=== PATIENT | male | born 1945 | race Caucasian/White ===

== ENCOUNTER → 2016-04-11 | Day surgery (SDC) | payer OTHER ==
[~2016-04-11] MED LIST: ASPI81TA2 PO; BENZOCAINE ONE 20% MUCOSAL SPRAY.; CLOP75TA PO; DOXA4TAB3 PO; FURO20TA3 PO; GLIM2TAB2 PO; IV RINGERS,LACTATED 1000ML 1,000 ML IV SCH; LIDOCAINE 2% TOPICAL JELLY 30GM TUBE. TP ONE; LIDOCAINE 2% VISCOUS 15 ML SOLUTION. ONE; LOSA1TAB18 PO; LOVA20TA2 PO; POTA20TA4 PO; PROPOFOL 20 ML IV ONE; SOTA80TA PO
[2016-04-11 12:20] VITALS: BP 219/77
--- NOTE | 2016-04-11 19:05 | CARD ---
APPROVED REPORT EXAM: Transesophageal echocardiogram with color flow Doppler. INDICATION Aortic Valve Disease Cardiomyopathy Mitral Valve Disease Murmur Congestive Heart Failure PROCEDURE After obtaining informed consent, patient underwent transesophageal echo in the PACU. Sedation was provided by anesthesiologist, see EMR for medications administered. Transesophageal probe was inserted and advanced into esophagus by Eduardo Quinones MD. The FLACA was performed without complications. Throughout the procedure, the blood pressure, pulse oximetry, cardiac rhythm, and rate were monitored . The patient tolerated the procedure without adverse effects. Recovery from conscious sedation was une ventful and vital signs were stable. LEFT VENTRICLE The left ventricle is normal size. There is normal left ventricular wall thickness. Left ventricle sy stolic function is bellow normal. The Ejection Fraction is 40% RIGHT VENTRICLE The right ventricle is normal size. The right ventricular systolic function is normal. ATRIA The left atrium is mildly dilated. The right atrium size is normal. The interatrial septum is intact with no evidence for an atrial septal defect or patent foramen ovale as noted on 2-D or Doppler imagi ng. There is no thrombus noted in the left atrial appendage. AORTIC VALVE The aortic valve is moderately to severely calcified. The aortic valve is trileaflet. Doppler and Col or Flow revealed mild aortic regurgitation. There is moderate to severe valvular aortic stenosis. MITRAL VALVE The mitral valve is normal in structure. There is no mitral valve stenosis. Doppler and Color Flow re vealed moderate mitral regurgitation. TRICUSPID VALVE The tricuspid valve is normal in structure Doppler and Color Flow revealed mild tricuspid valve regur gitation noted. There is no tricuspid valve stenosis. PULMONIC VALVE The pulmonary valve is normal in structure and function. Doppler and Color Flow revealed no pulmonic valvular regurgitation. There is no pulmonic valvular stenosis. GREAT VESSELS The aortic root is normal in size. Normal pulmonary venous flow (Doppler). No significant flow revers al in the pulmonary veins The IVC was visualized and appears normal in size. The SVC was visualized a nd appears normal in size. Critical Notification Critical Value: No <Conclusion> Left ventricle systolic function is bellow normal. The Ejection Fraction is 40% The left atrium is mildly dilated. The right atrium size is normal. There is no thrombus noted in the left atrial appendage. There is moderate to severe valvular aortic stenosis. Doppler and Color Flow revealed mild aortic regurgitation. The aortic valve is moderately to severely calcified. The aortic valve is trileaflet. Doppler and Color Flow revealed moderate mitral regurgitation. Doppler and Color Flow revealed mild tricuspid valve regurgitation noted. The pulmonary valve is normal in structure and function. The aortic root is normal in size. Normal pulmonary venous flow (Doppler). No significant flow reversal in the pulmonary veins The findings in the aortic and mitral valves may be secondary to rheumatic heart disease
== END | disposition home or self-care (01) ==
LOC: SURG 09:25
PROVIDERS: ATTEND Internal Medicine Cardiovascular Disease
DX: I42.9 Cardiomyopathy, unspecified (principal); I50.9 Heart failure, unspecified; I05.9 Rheumatic mitral valve disease, unspecified; I25.10 Atherosclerotic heart disease of native coronary artery without angina pectoris; T82.897A Other specified complication of cardiac prosthetic devices, implants and grafts, initial encounter; E78.00 Pure hypercholesterolemia, unspecified; I10 Essential (primary) hypertension; M19.90 Unspecified osteoarthritis, unspecified site; F41.9 Anxiety disorder, unspecified; F10.99 Alcohol use, unspecified with unspecified alcohol-induced disorder; F17.200 Nicotine dependence, unspecified, uncomplicated; E11.9 Type 2 diabetes mellitus without complications; I73.9 Peripheral vascular disease, unspecified
CPT/HCPCS: 76376; 82947; 93312; 93325; J2704

== ENCOUNTER 2016-04-23 07:57 | Inpatient (IN) | payer OTHER ==
[~2016-04-23] VITALS: Ht 172.7 cm; Wt 83.5 kg
[~2016-04-23 07:57] MED LIST changes: -BENZOCAINE ONE 20% MUCOSAL SPRAY.; -IV RINGERS,LACTATED 1000ML 1,000 ML IV SCH; -LIDOCAINE 2% TOPICAL JELLY 30GM TUBE. TP ONE; -LIDOCAINE 2% VISCOUS 15 ML SOLUTION. ONE; -PROPOFOL 20 ML IV ONE
[2016-04-23 08:28] LABS: HEMOGLOBIN 13.2 g/dL (13.0-17.5); RED BLOOD COUNT 4.38 x10^6/uL (4.30-5.70); RED CELL DISTRIBUTION WIDTH 14.1 % (11.5-14.5); WHITE BLOOD COUNT 8.2 x10^3/uL (4.0-11.0)
[2016-04-23 08:29] VITALS: BP 147/72
[2016-04-23 08:37] LABS: INR 1.1 (0.8-1.1); PROTHROMBIN TIME PATIENT 13.4 SEC (11.7-14.0)
[2016-04-23 10:40] VITALS: BP 159/60
--- NOTE | 2016-04-23 13:26 | PDOC2 ---
DATE OF CONSULT Date of Consult 04/23/2016 REASON FOR CONSULT Reason for Consult JACOBO REFERRING PHYSICIAN Referring Provider Dr Quinones CHIEF COMPLAINT Chief Complaint CAD Jamila sevilla SOURCE Source pt, and daughter HPI HPI as dictated ALLERGIES Allergies: Coded Allergies: No Known Drug Allergies (Unverified , 04/10/16) ROS ROS GEN: no Fevers no Chills EYES: no new Visual Complaints ENT: no EN Drainage no Hearing deficiets CVS: no Orthopnea min CP RESP: occ SOB occ HARRELL GI: no Nausea no Vomiting : no Dysuria no Urgency HEME: no easy bruising no Palp Ly Nodes NEURO no Focal Weakness no Sz PSYCH: no Suicidal Ideation no Depression SKIN: no Rashes ENDO: no Polyuria or Polydipsia n Hot/Cold Intolerance MU SK: Ch Arthraigia no Myalgia VITAL SIGNS Vital Signs VS - Last 72 Hours, by Label Date Time Temp Pulse Resp B/P Pulse Ox O2 Delivery O2 Flow Rate FiO2 04/23/16 10:40 97.5 51 18 159/60 97 Room Air 97.5 04/23/16 08:29 98.0 51 16 147/72 96 Room Air 98.0 PHYSICAL EXAM Physical Exam General Appearance: Awake Alert Oriented x 3 In no Distress Eyes: VIsion Unchanged Conjunctiva Normal EN: No EN Drainage Mucous Memb. moist Neck: no JVD no JVP Supple no Thyromegaly CVS: S1 S2 + Murmur No Gallop No Rub no Edema Resp: no Rales no Rhonchi no Acc. Muscle use GI: BAS +ve NO Bruit Non Tender Non Distended : no CVA tenderness; no Suprapubic Tenderness SKIN: no Rashes Breast Exam deferred Mu.Sk: Adequate ROM no Muscle Atrophy Heme: Unable to palpate Obvious LAD no Splenomegaly NEURO: Good Strength and Tone Cranial Nerves II - XII grossly intact Psych: not Depressed no Active hallucination ASSESSMENT/PLAN Assessment/Plan ARF: unclear etio. Best explaination would be Vol Dpeltion from diuretic use. VHDz may be contributing. Current FLuid and E-lyte status does not necessitate emergent need for Dialysis. Will re-evaluate for Dialysis in am ? CKD underlying - pt and family are not aware of same - will get OP Labs from PCP office CAD/ JUANCARLOSz - for LHC - will start IVF and NAC for now. If Creat is at orclose to baseline - then LHC in am ; gentle IVF for now HTN: Current BP meds reviewed. See orders for changes. Discussed Plan of Care and prognosis etc. at length with family. IMAGES Images: Left ventricle systolic function is normal. The Ejection Fraction is 65%. There is borderline concentric left ventricular hypertrophy. The left atrium size is mildly dilated The right atrium size is normal. The aortic valve is moderately calcified. Doppler and Color Flow revealed moderate aortic regurgitation. Calculated aortic valve area is 0.75 cm2 with maximum pressure gradient of 64 mmHg and mean pressure gradient of 41 mmHg. Doppler and color-flow analysis revealed severe aortic stenosis. Doppler and Color Flow revealed moderate mitral regurgitation. Doppler and Color Flow revealed mild tricuspid regurgitation. There is mild-moderate pulmonary hypertension. The PA pressure was estimated at 40 mmHg. The pulmonic valve is not well visualized. There is no evidence of significant pericardial effusion. LABS Labs: Laboratory Tests Test 04/23/16 08:20 White Blood Count 8.2x10^3/uL (4.0-11.0) Red Blood Count 4.38x10^6/uL (4.30-5.70) Hemoglobin 13.2g/dL (13.0-17.5) Hematocrit 39.0% (39.0-53.0) Mean Corpuscular Volume 89fL (79-100) Mean Corpuscular Hemoglobin 30pg (25-35) Mean Corpuscular Hemoglobin Concent 34g/dL (31-37) Red Cell Distribution Width 14.1% (11.5-14.5) Platelet Count 155x10^3/uL (140-400) Prothrombin Time 13.4SEC (11.7-14.0) Prothromb Time International Ratio 1.1 (0.8-1.1) Activated Partial Thromboplast Time 29SEC (24-38) Sodium Level 144mmol/L (136-145) Chloride Level 104mmol/L (98-107) Carbon Dioxide Level 32mmol/L (21-32) Anion Gap 8 (6-14) Blood Urea Nitrogen 27mg/dL (8-26) Estimated GFR (Cockcroft-Gault) 31.3 Glucose Level 128mg/dL (70-99) Calcium Level 9.1mg/dL (8.5-10.1) ABDULAZIZ BARROSO MD Apr 23, 2016 13:26
[2016-04-23] MEDS ORDERED: MAGNESIUM SULFATE 2GM 50 ML IV PRN (13:30)
[2016-04-23] MEDS: IV NORMAL SALINE 1000ML BAG 1,000 ML IV SCH (13:46)
[2016-04-23 13:55] LABS: ALBUMIN 2.3 g/dL (3.4-5.0); ALBUMIN/GLOBULIN RATIO 0.5 (1.0-1.7); CREATININE 2.1 mg/dL (0.7-1.3); GFR 31.3; TOTAL BILIRUBIN 0.5 mg/dL (0.2-1.0); TOTAL PROTEIN 7.1 g/dL (6.4-8.2)
[2016-04-23 15:05] VITALS: BP 158/83
--- NOTE | 2016-04-23 16:25 | RAD ---
Renal ultrasound, 04/23/2016: History: Acute renal insufficiency The right kidney measures 11.4 cm in length while the left kidney measures 11.1 cm. There is no evidence of hydronephrosis. The renal parenchymal echogenicity is within normal limits. There is mild bilateral renal cortical scarring. Prevoiding limited views of the urinary bladder show no abnormality. Post voiding views demonstrated approximately 36 cc of residual urine in the bladder. IMPRESSION: 1. Mild bilateral renal cortical scarring. 2. No evidence of renal obstruction. 3. Small volume of post voiding residual urine in the bladder.
--- NOTE | 2016-04-23 18:49 | PDOC1 ---
History and Physical Date of Admission Date of Admission DATE: 04/23/16 TIME: 18:42 Identification/Chief Complaint Chief Complaint Dyspnea and near syncope History of Present Illness History of Present Illness This patient is a 70-year-old gentleman that has a known history of valvular heart disease with aortic stenosis that has been followed for some time. The patient started developing some episodes of lightheadedness and feeling faint and this has also been since he started developing shortness of breath with exertion. Now he cannot walk 100 feet without getting short of breath. He was seen and evaluated as an outpatient and a FLACA was done that showed aortic stenosis with mitral insufficiency. The patient was coming in for a right and left heart catheterization to further evaluate his valvular condition but on arrival we found that he had a BUNs of 31 and a creatinine of 2.1. At this time the patient is not having any chest pains and is not having any dyspnea at rest. Past Medical History Cardiovascular: HTN, Aortic stenosis, Valve insufficiency, Pulmonary hypertension Current Medications Current Medications Current Medications Sodium Chloride 1,000 ml @ 75 mls/hr [id number] IV Last administered on t 13:46; Start 04/23/16 at 13:30 Magnesium Sulfate/ Dextrose (Magnesium Sulfate PREMIX 2GM) 50 ml @ 25 mls/hr PRN DAILY PRN IV for Mag < 1.7 on am labs; Start 04/23/16 at 13:30 Aspirin (Children'S Aspirin) 81 mg DAILYWBKFT PO ; Start 04/24/16 at 08:00 Potassium Chloride (Klor-Con) 20 meq DAILYWBKFT PO ; Start 04/24/16 at 08:00 Clopidogrel Bisulfate (Plavix) 75 mg DAILYWBKFT PO ; Start 04/24/16 at 08:00 Doxazosin Mesylate (Cardura) 4 mg DAILY PO ; Start 04/24/16 at 09:00 Glimepiride (Amaryl) 2 mg BIDWMEALS PO ; Start 04/24/16 at 08:00 Sotalol HCl (Betapace) 80 mg BID PO ; Start 04/23/16 at 21:00 Active Scripts Active Reported Lovastatin 20 Mg Tablet 1 Tab PO DAILY Doxazosin Mesylate 4 Mg Tablet 1 Tab PO DAILY Glimepiride 2 Mg Tablet 1 Tab PO BID Klor-Con M20 (Potassium Chloride) 20 Meq Tab.er.prt 20 Meq PO DAILY Aspirin 81 Mg Tab.chew 1 Tab PO DAILY Clopidogrel (Clopidogrel Bisulfate) 75 Mg Tablet 1 Tab PO DAILY Sotalol (Sotalol Hcl) 80 Mg Tablet 1 Tab PO BID Losartan-Hctz 100-12.5 Mg Tab (Losartan/Hydrochlorothiazide) 1 Each Tablet 1 Tab PO DAILY Furosemide 20 Mg Tablet 1 Tab PO DAILY Allergies Allergies: Coded Allergies: No Known Drug Allergies (Unverified , 04/10/16) Physical Exam Physical Exam The patient was resting comfortably and denies having any rest chest pain or dyspnea. H EENT pupils are reactive, there is surgical scars over the nose and there is an excoriation on the right side of the nose. Oral mucosa dry. Neck is supple no JVD. Lungs are clear. Heart regular rate and rhythm there is a 3/6 systolic murmur best heard over the second intercostal space right sternal border and a 2/6 systolic murmur with a slightly different pitch at the apex. Abdomen is soft bowel sounds are present. Extremities no edema. Neurologic Exam was grossly intact. Vitals Vitals Vital Signs Date Time Temp Pulse Resp B/P Pulse Ox O2 Delivery O2 Flow Rate FiO2 04/23/16 15:05 97.5 55 18 158/83 97 Room Air 97.5 Labs Labs Laboratory Tests Test 04/23/16 08:20 White Blood Count 8.2x10^3/uL (4.0-11.0) Red Blood Count 4.38x10^6/uL (4.30-5.70) Hemoglobin 13.2g/dL (13.0-17.5) Hematocrit 39.0% (39.0-53.0) Mean Corpuscular Volume 89fL (79-100) Mean Corpuscular Hemoglobin 30pg (25-35) Mean Corpuscular Hemoglobin Concent 34g/dL (31-37) Red Cell Distribution Width 14.1% (11.5-14.5) Platelet Count 155x10^3/uL (140-400) Prothrombin Time 13.4SEC (11.7-14.0) Prothromb Time International Ratio 1.1 (0.8-1.1) Activated Partial Thromboplast Time 29SEC (24-38) Sodium Level 144mmol/L (136-145) Potassium Level 4.0mmol/L (3.5-5.1) Chloride Level 105mmol/L (98-107) Carbon Dioxide Level 31mmol/L (21-32) Anion Gap 8 (6-14) Blood Urea Nitrogen 27mg/dL (8-26) Creatinine 2.1mg/dL (0.7-1.3) Estimated GFR (Cockcroft-Gault) 31.3 BUN/Creatinine Ratio 13 (6-20) Glucose Level 128mg/dL (70-99) Calcium Level 9.0mg/dL (8.5-10.1) Total Bilirubin 0.5mg/dL (0.2-1.0) Aspartate Amino Transf (AST/SGOT) 28U/L (15-37) Alanine Aminotransferase (ALT/SGPT) 25U/L (16-63) Alkaline Phosphatase 88U/L (46-116) Total Protein 7.1g/dL (6.4-8.2) Albumin 2.3g/dL (3.4-5.0) Albumin/Globulin Ratio 0.5 (1.0-1.7) Laboratory Tests Test 04/23/16 08:20 White Blood Count 8.2x10^3/uL (4.0-11.0) Red Blood Count 4.38x10^6/uL (4.30-5.70) Hemoglobin 13.2g/dL (13.0-17.5) Hematocrit 39.0% (39.0-53.0) Mean Corpuscular Volume 89fL (79-100) Mean Corpuscular Hemoglobin 30pg (25-35) Mean Corpuscular Hemoglobin Concent 34g/dL (31-37) Red Cell Distribution Width 14.1% (11.5-14.5) Platelet Count 155x10^3/uL (140-400) Prothrombin Time 13.4SEC (11.7-14.0) Prothromb Time International Ratio 1.1 (0.8-1.1) Activated Partial Thromboplast Time 29SEC (24-38) Sodium Level 144mmol/L (136-145) Potassium Level 4.0mmol/L (3.5-5.1) Chloride Level 105mmol/L (98-107) Carbon Dioxide Level 31mmol/L (21-32) Anion Gap 8 (6-14) Blood Urea Nitrogen 27mg/dL (8-26) Creatinine 2.1mg/dL (0.7-1.3) Estimated GFR (Cockcroft-Gault) 31.3 BUN/Creatinine Ratio 13 (6-20) Glucose Level 128mg/dL (70-99) Calcium Level 9.0mg/dL (8.5-10.1) Total Bilirubin 0.5mg/dL (0.2-1.0) Aspartate Amino Transf (AST/SGOT) 28U/L (15-37) Alanine Aminotransferase (ALT/SGPT) 25U/L (16-63) Alkaline Phosphatase 88U/L (46-116) Total Protein 7.1g/dL (6.4-8.2) Albumin 2.3g/dL (3.4-5.0) Albumin/Globulin Ratio 0.5 (1.0-1.7) VTE Prophylaxis Ordered VTE Prophylaxis Devices: No VTE Pharmacological Prophylaxi: Yes Assessment/Plan Assessment/Plan This patient with valvular heart disease with aortic stenosis and mitral insufficiency needs to have a right and left heart catheterization to further evaluate his condition before he undergoes surgery. He comes in and appears to have acute renal failure therefore I would like to start him on IV fluids and consult the producer director. When the producer director clears him for the heart catheterization will then proceed with that. BANDAR HUFFMAN MD Apr 23, 2016 18:49
[2016-04-23 19:00] VITALS: BP 146/49
[2016-04-23] MEDS: SOTALOL 80 MG TABLET. PO SCH (19:56)
[2016-04-23 23:00] VITALS: BP 130/52
--- NOTE | 2016-04-23 23:41 | CONS ---
DATE OF CONSULTATION: PRIMARY PHYSICIAN: Dr. Quinones. REASON FOR CONSULTATION: Acute renal failure. HISTORY OF PRESENT ILLNESS: The patient is a 70-year-old gentleman with past medical history as outlined below. He was noted to have aortic sclerosis/stenosis with aortic valve area of 0.75 cm on most recent echocardiogram with a peak gradient of 64 and a mean pressure gradient of 41. This is consistent with severe aortic stenosis and moderate mitral regurgitation. He was admitted to this facility to assess for left heart cath prior to valvular intervention. He was noted to have a creatinine of 2.1 this morning precath and we were asked to see him to assess his precath risk associated with contrast nephropathy. The patient is not aware of known underlying renal insufficiency per se. He is on diuretics. Denies orthostasis, occasional shortness of breath. He thinks his urine color has been relatively normal. He denies NSAID use in the recent past. No baseline creatinines available at this time. PAST MEDICAL HISTORY: Significant for coronary artery disease, status post stents, peripheral vascular disease, ____ intervention not known, hyperlipidemia, hypertension, questionable BPH, chronic arthritis, type 2 diabetes, anxiety disorder, previous smoking, skin cancers in the past. FAMILY HISTORY: Positive for lymphoma in the mom, emphysema in the dad. SOCIAL HISTORY: , previous smoker, minimal alcohol use. For rest of details, see electronic records. ABDULAZIZ BARROSO MD DR: NICKY/mattie JOB#: [id number] / [id number]
[2016-04-24 00:05] LABS: BILIRUBIN,URINE NEGATIVE (NEG); GLUCOSE,URINE 100 mg/dL (NEG); NITRITE,URINE NEGATIVE (NEG); UROBILINOGEN,URINE 0.2 mg/dL (0.2 mg/dL)
[2016-04-24 00:14] LABS: BACTERIA,URINE FEW /HPF (0-FEW); PROTEIN,URINE TRACE mg/dL (NEG-TRACE); RBC,URINE 0 /HPF (0-2); SQUAMOUS EPITHELIAL CELL,UR OCC /LPF; WBC,URINE OCC /HPF (0-4)
[2016-04-24] MEDS: IV NORMAL SALINE 1000ML BAG 1,000 ML IV SCH ×2 (02:15→16:10)
[2016-04-24 03:00] VITALS: BP 152/41
[2016-04-24 07:25] VITALS: BP 176/56
[2016-04-24] MEDS ORDERED: MAGNESIUM SULFATE 2GM 50 ML IV ONE (07:30)
[2016-04-24] MEDS: ASPIRIN 81 MG TAB.CHEW PO SCH (08:10)
[2016-04-24] MEDS: POTASSIUM CHLORIDE 20 MEQ TABLET.ER. PO SCH (08:10)
[2016-04-24] MEDS: CLOPIDOGREL BISULFATE 75 MG TABLET PO SCH (08:10)
[2016-04-24] MEDS: GLIMEPIRIDE 2 MG TABLET PO SCH ×2 (08:11→17:49)
[2016-04-24] MEDS: SOTALOL 80 MG TABLET. PO SCH ×2 (08:11→20:44)
[2016-04-24] MEDS: DOXAZOSIN MESYLATE 4 MG TABLET PO SCH (08:11)
[2016-04-24 08:38] LABS: ALBUMIN 2.9 g/dL (3.4-5.0); CALCIUM 7.8 mg/dL (8.5-10.1); CREATININE 2.1 mg/dL (0.7-1.3); GFR 31.3; PHOSPHORUS 3.7 mg/dL (2.6-4.7); POTASSIUM 3.6 mmol/L (3.5-5.1)
--- NOTE | 2016-04-24 10:11 | PDOC ---
SUBJECTIVE ROS JACOBO/ CKD III Doigna nd feeling OK Overall CVS: no Orthopnea, no CP RESP: no SOB, no HARRELL GI: no Nausea, no Vomiting : no Dysuria, no Urgency OBJECTIVE Vital Signs Vital Signs Date Time Temp Pulse Resp B/P Pulse Ox O2 Delivery O2 Flow Rate FiO2 04/24/16 08:11 64 176/56 04/24/16 07:25 97.9 18 96 Room Air 97.9 I & 0 Intake and Output 04/24/16 07:00 Intake Total 3750 ml Output Total 1450 ml Balance 2300 ml Intake Oral 2750 ml IV Total 1000 ml Output Urine Total 1450 ml # Voids 2 PHYSICAL EXAM Physical Exam General Appearance: Awake Alert Oriented x 3 In no Distress Eyes: VIsion Unchanged Conjunctiva Normal EN: No EN Drainage Mucous Memb. moist Neck: no JVD no JVP Supple no Thyromegaly CVS: S1 S2 + Murmur No Gallop No Rub no Edema Resp: no Rales no Rhonchi no Acc. Muscle use GI: BS +ve NO Bruit Non Tender Non Distended : no CVA tenderness; no Suprapubic Tenderness SKIN: no Rashes Breast Exam deferred Mu.Sk: Adequate ROM no Muscle Atrophy Heme: Unable to palpate Obvious LAD no Splenomegaly NEURO: Good Strength and Tone Cranial Nerves II - XII grossly intact Psych: not Depressed no Active hallucination ASSESSMENT/PLAN Assessment/Plan CKD III/ IV - Extensive time spent getting and reviewing Med records from PCP. Current FLuid and E-lyte status does not necessitate emergent need for Dialysis. Suspect Dm and HTNSive / NS, Creat was 2.17 in may 2015 Hypomag - Given 2 gms Mag Sulfate CAD/ VHDz - for [facility] - will restart IVF at 8pm tonite and ct NAC for now. HTN: Current BP meds reviewed. See orders for changes. ? due to Anxiety (pt wants to go home) Low Ciro - reval with IV MAg correction Proteinuria - Quantitate with Ratio Discussed Plan of Care and prognosis etc. at length with family. Risk of CHF, JACOBO 14%, and of needing HD < 10% at this time. This may rise in the future. COMMENT/RELEVANT DATA Meds Current Medications Medications (Trade) Dose Ordered Sig/Damian Start Time Stop Time Status Last Admin Dose Admin Acetylcysteine (Mucomyst 20% Oral Solution) 1,200 mg BID 1/17/17 09:00 04/26/16 08:59 Aspirin (Children'S Aspirin) 81 mg DAILYWBKFT 04/24/16 08:00 04/24/16 08:10 81 MG Clopidogrel Bisulfate (Plavix) 75 mg DAILYWBKFT 04/24/16 08:00 04/24/16 08:10 75 MG Doxazosin Mesylate (Cardura) 4 mg DAILY 04/24/16 09:00 04/24/16 08:11 4 MG Glimepiride (Amaryl) 2 mg BIDWMEALS 04/24/16 08:00 04/24/16 08:11 2 MG Magnesium Sulfate/ Dextrose (Magnesium Sulfate PREMIX 2GM) 50 ml @ 25 mls/hr 1X ONCE 04/24/16 07:30 04/24/16 09:29 DC 04/24/16 08:10 25 MLS/HR Potassium Chloride (Klor-Con) 20 meq DAILYWBKFT 04/24/16 08:00 04/24/16 08:10 20 MEQ Sodium Chloride (Iv Sodium Chloride 0.9% 1000ml Bag) 1,000 ml @ 75 mls/hr [id number] 04/23/16 13:30 04/24/16 02:15 75 MLS/HR Sotalol HCl 80 mg 80 mg BID 04/23/16 21:00 04/24/16 08:11 80 MG Lab Laboratory Tests Test 04/23/16 23:55 04/24/16 04:21 Urine Collection Type Unknown Urine Color Yellow Urine Clarity Clear Urine pH 6.0 Urine Specific [place] 1.010 Urine Protein Tracemg/dL (NEG-TRACE) Urine Glucose (UA) 100mg/dL (NEG) Urine Ketones (Stick) Negativemg/dL (NEG) Urine Blood Negative (NEG) Urine Nitrite Negative (NEG) Urine Bilirubin Negative (NEG) Urine Urobilinogen Dipstick 0.2mg/dL (0.2 mg/dL) Urine Leukocyte Esterase Negative (NEG) Urine RBC 0/HPF (0-2) Urine WBC Occ/HPF (0-4) Urine Squamous Epithelial Cells Occ/LPF Urine Bacteria Few/HPF (0-FEW) Hemoglobin 12.2g/dL (13.0-17.5) Sodium Level 146mmol/L (136-145) Potassium Level 3.6mmol/L (3.5-5.1) Chloride Level 108mmol/L (98-107) Carbon Dioxide Level 28mmol/L (21-32) Anion Gap 10 (6-14) Blood Urea Nitrogen 25mg/dL (8-26) Creatinine 2.1mg/dL (0.7-1.3) Estimated GFR (Cockcroft-Gault) 31.3 Glucose Level 90mg/dL (70-99) Calcium Level 7.8mg/dL (8.5-10.1) Phosphorus Level 3.7mg/dL (2.6-4.7) Magnesium Level 1.7mg/dL (1.8-2.4) Albumin 2.9g/dL (3.4-5.0) Other The right kidney measures 11.4 cm in length while the left kidney measures 11.1 cm. There is no evidence of hydronephrosis. The renal parenchymal echogenicity is within normal limits. There is mild bilateral renal cortical scarring. Prevoiding limited views of the urinary bladder show no abnormality. Post voiding views demonstrated approximately 36 cc of residual urine in the bladder. IMPRESSION: 1. Mild bilateral renal cortical scarring. 2. No evidence of renal obstruction. 3. Small volume of post voiding residual urine in the bladder. ABDULAZIZ BARROSO MD Apr 24, 2016 10:11
[2016-04-24 11:05] VITALS: BP 158/48
[2016-04-24] MEDS: ACETYLCYSTEINE 20% ORAL SOLN 600 MG/3 ML SYRINGE. PO SCH ×2 (11:14→20:44)
--- NOTE | 2016-04-24 11:30 | PDOC ---
PROGRESS NOTES Subjective Subjective Patient is feeling well today and offers no complaints. Objective Objective Vital Signs Date Time Temp Pulse Resp B/P Pulse Ox O2 Delivery O2 Flow Rate FiO2 04/24/16 08:11 64 176/56 04/24/16 07:25 97.9 18 96 Room Air 97.9 Intake and Output 04/24/16 07:00 Intake Total 3750 ml Output Total 1450 ml Balance 2300 ml Intake Oral 2750 ml IV Total 1000 ml Output Urine Total 1450 ml # Voids 2 Physical Exam Abdomen: Normal bowel sounds, Soft, No tenderness, No hepatosplenomegaly, No masses Heart: Regular rate, Normal S1, Normal S2, Other (previous systolic murmur heard) Extremities: No clubbing, No cyanosis, No edema General: Alert, Oriented X3, Cooperative, No acute distress HEENT: Atraumatic, PERRLA, EOMI, Mucous membr. moist/pink Lungs: Clear to auscultation, Normal air movement Neck: No JVD, No thyromegaly Neuro: Normal gait, Normal speech, Cranial nerves 3-12 NL Skin: No rashes Assessment Assessment Renal Failure Aortic stenosis. Mitral insufficiency. Plan Plan of Care Prior records indicate creatinine of 2.1 one year ago. Patient is at baseline per nephrology, R&L heart cath planned for tomorrow. Comment Review of Relevant I have reviewed the following items heike (where applicable) has been applied. Labs Laboratory Tests Test 04/23/16 08:20 04/23/16 23:55 04/24/16 04:21 White Blood Count 8.2x10^3/uL (4.0-11.0) Red Blood Count 4.38x10^6/uL (4.30-5.70) Hemoglobin 13.2g/dL (13.0-17.5) 12.2g/dL (13.0-17.5) Hematocrit 39.0% (39.0-53.0) Mean Corpuscular Volume 89fL (79-100) Mean Corpuscular Hemoglobin 30pg (25-35) Mean Corpuscular Hemoglobin Concent 34g/dL (31-37) Red Cell Distribution Width 14.1% (11.5-14.5) Platelet Count 155x10^3/uL (140-400) Prothrombin Time 13.4SEC (11.7-14.0) Prothromb Time International Ratio 1.1 (0.8-1.1) Activated Partial Thromboplast Time 29SEC (24-38) Sodium Level 144mmol/L (136-145) 146mmol/L (136-145) Potassium Level 4.0mmol/L (3.5-5.1) 3.6mmol/L (3.5-5.1) Chloride Level 105mmol/L (98-107) 108mmol/L (98-107) Carbon Dioxide Level 31mmol/L (21-32) 28mmol/L (21-32) Anion Gap 8 (6-14) 10 (6-14) Blood Urea Nitrogen 27mg/dL (8-26) 25mg/dL (8-26) Creatinine 2.1mg/dL (0.7-1.3) 2.1mg/dL (0.7-1.3) Estimated GFR (Cockcroft-Gault) 31.3 31.3 BUN/Creatinine Ratio 13 (6-20) Glucose Level 128mg/dL (70-99) 90mg/dL (70-99) Calcium Level 9.0mg/dL (8.5-10.1) 7.8mg/dL (8.5-10.1) Total Bilirubin 0.5mg/dL (0.2-1.0) Aspartate Amino Transf (AST/SGOT) 28U/L (15-37) Alanine Aminotransferase (ALT/SGPT) 25U/L (16-63) Alkaline Phosphatase 88U/L (46-116) Total Protein 7.1g/dL (6.4-8.2) Albumin 2.3g/dL (3.4-5.0) 2.9g/dL (3.4-5.0) Albumin/Globulin Ratio 0.5 (1.0-1.7) Urine Collection Type Unknown Urine Color Yellow Urine Clarity Clear Urine pH 6.0 Urine Specific [place] 1.010 Urine Protein Tracemg/dL (NEG-TRACE) Urine Glucose (UA) 100mg/dL (NEG) Urine Ketones (Stick) Negativemg/dL (NEG) Urine Blood Negative (NEG) Urine Nitrite Negative (NEG) Urine Bilirubin Negative (NEG) Urine Urobilinogen Dipstick 0.2mg/dL (0.2 mg/dL) Urine Leukocyte Esterase Negative (NEG) Urine RBC 0/HPF (0-2) Urine WBC Occ/HPF (0-4) Urine Squamous Epithelial Cells Occ/LPF Urine Bacteria Few/HPF (0-FEW) Phosphorus Level 3.7mg/dL (2.6-4.7) Magnesium Level 1.7mg/dL (1.8-2.4) Laboratory Tests Test 04/23/16 23:55 04/24/16 04:21 Urine Collection Type Unknown Urine Color Yellow Urine Clarity Clear Urine pH 6.0 Urine Specific [place] 1.010 Urine Protein Tracemg/dL (NEG-TRACE) Urine Glucose (UA) 100mg/dL (NEG) Urine Ketones (Stick) Negativemg/dL (NEG) Urine Blood Negative (NEG) Urine Nitrite Negative (NEG) Urine Bilirubin Negative (NEG) Urine Urobilinogen Dipstick 0.2mg/dL (0.2 mg/dL) Urine Leukocyte Esterase Negative (NEG) Urine RBC 0/HPF (0-2) Urine WBC Occ/HPF (0-4) Urine Squamous Epithelial Cells Occ/LPF Urine Bacteria Few/HPF (0-FEW) Hemoglobin 12.2g/dL (13.0-17.5) Sodium Level 146mmol/L (136-145) Potassium Level 3.6mmol/L (3.5-5.1) Chloride Level 108mmol/L (98-107) Carbon Dioxide Level 28mmol/L (21-32) Anion Gap 10 (6-14) Blood Urea Nitrogen 25mg/dL (8-26) Creatinine 2.1mg/dL (0.7-1.3) Estimated GFR (Cockcroft-Gault) 31.3 Glucose Level 90mg/dL (70-99) Calcium Level 7.8mg/dL (8.5-10.1) Phosphorus Level 3.7mg/dL (2.6-4.7) Magnesium Level 1.7mg/dL (1.8-2.4) Albumin 2.9g/dL (3.4-5.0) Medications Current Medications Sodium Chloride 1,000 ml @ 75 mls/hr [id number] IV Last administered on t 02:15; Start 04/23/16 at 13:30 Magnesium Sulfate/ Dextrose (Magnesium Sulfate PREMIX 2GM) 50 ml @ 25 mls/hr PRN DAILY PRN IV for Mag < 1.7 on am labs; Start 04/23/16 at 13:30 Aspirin (Children'S Aspirin) 81 mg DAILYWBKFT PO Last administered on 08:10; Start 04/24/16 at 08:00 Potassium Chloride (Klor-Con) 20 meq DAILYWBKFT PO Last administered on 08:10; Start 04/24/16 at 08:00 Clopidogrel Bisulfate (Plavix) 75 mg DAILYWBKFT PO Last administered on 08:10; Start 04/24/16 at 08:00 Doxazosin Mesylate (Cardura) 4 mg DAILY PO Last administered on 04/24/16 08:11 ; Start 04/24/16 at 09:00 Glimepiride (Amaryl) 2 mg BIDWMEALS PO Last administered on 04/24/16 08:11; Start 04/24/16 at 08:00 Sotalol HCl 80 mg 80 mg BID PO Last administered on 04/24/16 08:11; Start at 21:00 Magnesium Sulfate/ Dextrose (Magnesium Sulfate PREMIX 2GM) 50 ml @ 25 mls/hr 1X ONCE IV Last administered on 04/24/16 08:10; Start 04/24/16 at 07:30; Stop 04/24/16 at 09:29; Status DC Acetylcysteine (Mucomyst 20% Oral Solution) 1,200 mg BID PO Last administered on 04/24/16 11:14; Start 04/24/16 at 09:00; Stop 04/26/16 at 08:59 Active Scripts Active Reported Lovastatin 20 Mg Tablet 1 Tab PO DAILY Doxazosin Mesylate 4 Mg Tablet 1 Tab PO DAILY Glimepiride 2 Mg Tablet 1 Tab PO BID Klor-Con M20 (Potassium Chloride) 20 Meq Tab.er.prt 20 Meq PO DAILY Aspirin 81 Mg Tab.chew 1 Tab PO DAILY Clopidogrel (Clopidogrel Bisulfate) 75 Mg Tablet 1 Tab PO DAILY Sotalol (Sotalol Hcl) 80 Mg Tablet 1 Tab PO BID Losartan-Hctz 100-12.5 Mg Tab (Losartan/Hydrochlorothiazide) 1 Each Tablet 1 Tab PO DAILY Furosemide 20 Mg Tablet 1 Tab PO DAILY Vitals/I & O Vital Sign - Last 24 Hours 04/23/16 04/23/16 04/23/16 04/23/16 15:05 19:00 19:56 20:00 Temp 97.5 97.4 97.5 97.4 Pulse 55 59 62 Resp 18 20 B/P 158/83 146/49 146/49 Pulse Ox 97 96 O2 Delivery Room Air Room Air Room Air 04/23/16 04/24/16 04/24/16 04/24/16 23:00 03:00 07:25 08:11 Temp 97.4 97.7 97.9 97.4 97.7 97.9 Pulse 58 55 59 64 Resp 20 18 18 B/P 130/52 152/41 176/56 176/56 Pulse Ox 97 97 96 O2 Delivery Room Air Room Air Room Air 04/24/16 08:11 Pulse 64 B/P 176/56 Intake and Output 04/23/16 04/23/16 04/24/16 15:00 23:00 07:00 Intake Total 250 ml 2370 ml 1130 ml Output Total 1000 ml 450 ml Balance 250 ml 1370 ml 680 ml BANDAR HUFFMAN MD Apr 24, 2016 11:30
[2016-04-24 15:10] VITALS: BP 149/50
[2016-04-24 18:10] LABS: UR PROTEIN RD 25.2 mg/dL (Not Estab.)
[2016-04-24 19:05] VITALS: BP 166/52
--- NOTE | 2016-04-24 19:29 | PDOC ---
MODERATE SEDATION ASSESSMENT RISKS/ALTERNATIVES Risks/Alternatives Risks and alternatives of this type of sedation and procedure discussed with: RISK/ALTERNATIVES: Patient H & P ON CHART H & P H & P on chart and reviewed for co-morbid conditions and appropriate labs. H&P ON CHART: Yes STATUS PREG STATUS ASSESSED: Yes MEDS/ALLERGIES REVIEWED Meds/Allergies Reviewed Medications and Allergies including time and route of recently administered narcotics and sedatives. MEDS/ALLERGIES REVIEWED: Yes ASA RATING ASA RATING: II AIRWAY ASSESSMENT Airway Assessment Airway patency, oral function limitations, presence of caps, crowns, dentures, partials, and ability to extend neck assessed. AIRWAY ASSESSMENT: Yes MALLAMPATI SCORE MALLAMPATI SCORE: II PRE-SEDATION ASSESSMENT PRE-SEDATION ASSESSMENT: Yes BANDAR HUFFMAN MD Apr 24, 2016 19:29
[2016-04-24 23:12] VITALS: BP 157/59
[2016-04-25] VITALS (14 sets, daily range): BP systolic 137–189; BP diastolic 49–82
[2016-04-25] MEDS: IV NORMAL SALINE 1000ML BAG 1,000 ML IV SCH ×2 (05:01→20:47)
[2016-04-25 06:59] LABS: CALCIUM 7.9 mg/dL (8.5-10.1); CREATININE 1.8 mg/dL (0.7-1.3); GFR 37.4; PHOSPHORUS 2.7 mg/dL (2.6-4.7); POTASSIUM 3.4 mmol/L (3.5-5.1)
[2016-04-25] MEDS: GLIMEPIRIDE 2 MG TABLET PO SCH ×2 (08:00→19:11)
[2016-04-25] MEDS ORDERED: LIDOCAINE 2% 20 ML VIAL. ONE (08:48)
[2016-04-25] MEDS ORDERED: IODIXANOL 320 MG/ML 100 ML VIAL. ONE (08:49)
[2016-04-25] MEDS: DOXAZOSIN MESYLATE 4 MG TABLET PO SCH (09:00)
[2016-04-25] MEDS: ACETYLCYSTEINE 20% ORAL SOLN 600 MG/3 ML SYRINGE. PO SCH ×2 (09:54→20:45)
[2016-04-25] MEDS: SOTALOL 80 MG TABLET. PO SCH ×2 (09:55→20:44)
[2016-04-25] MEDS: CLOPIDOGREL BISULFATE 75 MG TABLET PO SCH (09:55)
[2016-04-25] MEDS: ASPIRIN 81 MG TAB.CHEW PO SCH (09:55)
[2016-04-25] MEDS ORDERED: FENTANYL PF 100 MCG/2 ML VIAL. ONE (11:01)
[2016-04-25] MEDS ORDERED: MIDAZOLAM HCL 2 MG/2 ML VIAL. ONE (11:01)
[2016-04-25] MEDS ORDERED: LIDOCAINE 2% 20 ML VIAL. IJ ONE (12:00)
[2016-04-25] MEDS ORDERED: MIDAZOLAM HCL 2 MG/2 ML VIAL. IV ONE (12:00)
[2016-04-25] MEDS ORDERED: IODIXANOL 320 MG/ML 100 ML VIAL. IART ONE (12:00)
[2016-04-25] MEDS ORDERED: FENTANYL PF 100 MCG/2 ML VIAL. IV ONE (12:00)
--- NOTE | 2016-04-25 15:10 | PDOC ---
Provider Note Provider Note Pt seen/examined full consult note dictated The Pt denies chest pain and sob to me his primary complaint is Bilat LE claudication He is able to function at his job on Exam he has a systolic murmur c/w aortic stenosis Femoral pulses are present bilaterally, but pedal pulses are non-palpable Echo has shown severe with AV velocity at 4 m/s The mitral insufficiency appears mild to me The left atrium is not sig enlarged there is concentric LVH FLACA has been interpreted as moderate-severe LHC shows sig CAD in the RCA and in the LAD IMP: Aortic Stenosis, ?? symptomatic. the Pt/family has reported symkptoms to Dr. Quinones, but he denies them to me. Rec: I believe the best way to proceed is to evaluate the heart under stress with a Stress Muga scan. This should help discern the severity of the as there seems to be discordance between HIs echo and the presence of symptoms. Discussed Pt's care with Dr. Quinones. Will obtain CXR and Carotid Duplex exam JOSE L DELGADO MD Apr 25, 2016 15:10
--- NOTE | 2016-04-25 16:36 | RAD ---
Indication coronary artery disease. Aortic stenosis. Anticipated surgery. Protocol study. Grayscale color Doppler and spectral imaging was performed. Examination was targeted to the carotid bifurcations. On the right there is some modest plaquing. The color Doppler images do not suggest significant turbulence. The common carotid waveform and velocities are normal. The external carotid has a slightly elevated peak systolic velocity compatible with incidental mild stenosis in this vessel. There are tarda waveforms seen associated with the internal carotid artery. The velocity measurements however are normal. The etiology is unclear but a stenotic component is not excluded. The vertebral is patent and demonstrates normal directional flow. The subclavian artery is unremarkable. On the left there is some plaquing similar to the contralateral side. The color Doppler images do not suggest significant turbulence. The common carotid waveform and velocities are normal. There is a modestly elevated peak systolic velocity associated with the external carotid similar to the contralateral side again consistent with incidental stenosis in this vessel. There is are tarda waveforms in the left internal carotid similar to the contralateral side again the etiology is not certain. A similar waveform is seen in the vertebral but the directional flow is normal. The subclavian artery appears unremarkable. IMPRESSION: Somewhat equivocal finding associated with the internal carotid arteries bilaterally. Definite evidence of high-grade stenosis is not seen but there are tarda waveforms seen associated with the internal carotid arteries. The etiology is not clear. If additional evaluation is warranted a CT examination, targeted to the carotid arteries, could be performed Incidental stenosis, mild, noted associated with the external carotid arteries bilaterally Note: Stenosis calculations for CT, MR and conventional angiography are based upon determination of the distal ICA diameter in accordance with the NASCET methodology. Stenosis calculations for doppler studies are derived from validated velocity criteria which are known to correlate with NASCET methodology of determining stenosis.
--- NOTE | 2016-04-25 18:46 | CARD ---
APPROVED REPORT Procedure(s) performed: Complete Heart Catheterization HISTORY The patient is a 70 year-old male with a history of : renal failure without dialysis, peripheral vasc ular disease, hypertension. INDICATION The indication(s) include : dyspnea, valvular heart disease. CASE TECHNIQUE The patient was brought electively into the cardiac catheterization lab. A timeout was performed conf irming the patient's name, date of , procedure, and site of procedure. All necessary parties wer e wearing the appropriate personal protective equipment and radiation monitoring devices. After expla ining the risks and benefits of the procedure, informed consent was obtained.(See nursing notes for m edications administered). The right groin was sterilely prepped and draped. The right femoral groin w as infiltrated with 2% Lidocaine subcutaneous anesthesia. During this case, Fluoroscopy and low osmol ar contrast were used for imaging. A sheath was inserted into the right femoral artery without diffic ulty. Coronary angiography was performed using coronary diagnostic catheters. The left coronary syste m was accessed and visualized with a Diagnostic catheter. The right coronary system was accessed and visualized with a Diagnostic catheter. The left ventricle was accessed and visualized with a Diagnost ic catheter. Left ventricular/Aortic Valve gradient assessed on pullback. Left ventriculogram was per formed in PATEL projection. An aortogram of the ascending aorta was performed. A Right Heart Catheteriz ation was performed with a 7.5 Fr. Enterprise-Bradford catheter and pressure were recorded. Pre-demployment fem oral angiogram was performed . Closure device was deployed with a Angioseal without any complications . The patient tolerated the procedure well and there were no complications associated with the proced ure. Coronary Angiography The patient's coronary anatomy is right dominant. The left main coronary artery is a large size vessel free of disease. The left main bifurcates to the left anterior descending and circumflex. The left anterior descending artery is a large size vessel with intimal irregularities. There is a 60 % stenosis in the mid segment. The first diagonal branch is a medium size vessel free of disease. The second diagonal branch is a small size vessel free of disease. The third diagonal branch is a small size vessel free of disease. The circumflex artery is a medium size vessel free of disease. The first obtuse marginal branch is a small size vessel free of disease. The second obtuse marginal branch is a small size vessel free of d isease. The right coronary artery is a large size vessel with intimal irregularities. There is a 80% stenosis in the proximal segment. The right posterior descending artery is a small size vessel free of diseas e. The right posterolateral branch is a medium size vessel free of disease. Left Ventriculography The left ventricle is normal in size with normal contractility. The left ventricular ejection fractio n is estimated to be 55%. The left ventricular end diastolic pressure is 32 mmHg. Right Heart Cath Findings The Right Atrial Pressure is 16 mmHg. The Right Ventricular Pressure is 56/8 mmHg. The Pulmonary Afshan ry Pressure is 56/30 mmHg. The Pulmonary Catheter Wedge Pressure is 32 mmHg. there was a very large v wave Aorta The ascending aorta was normal in size and mild AI Valves The peak gradient across the aortic valve is 40 mmHg. There is Grade 2 aortic insufficiency present. There is Grade 2 mitral insufficiency present. Conclusion This pt has Aortic stenosis with AI and MR. There is moderate pulmonary HTN Two vessel CAD. Will get surgical consult for possible valvular surgery and CABGS Recommendations Valve Surgery CABG
[2016-04-25] MEDS: POTASSIUM CHLORIDE 20 MEQ TABLET.ER. PO SCH (19:11)
--- NOTE | 2016-04-25 21:15 | PDOC4 ---
PROCEDURE Procedure Procedure note INDICATION The indication(s) include : dyspnea, valvular heart disease. CASE TECHNIQUE The patient was brought electively into the cardiac catheterization lab. A timeout was performed confirming the patient's name, date of , procedure, and site of procedure. All necessary parties were wearing the appropriate personal protective equipment and radiation monitoring devices. After explaining the risks and benefits of the procedure, informed consent was obtained.(See nursing notes for medications administered). The right groin was sterilely prepped and draped. The right femoral groin was infiltrated with 2% Lidocaine subcutaneous anesthesia. During this case, Fluoroscopy and low osmolar contrast were used for imaging. A sheath was inserted into the right femoral artery without difficulty. Coronary angiography was performed using coronary diagnostic catheters. The left coronary system was accessed and visualized with a Diagnostic catheter. The right coronary system was accessed and visualized with a Diagnostic catheter. The left ventricle was accessed and visualized with a Diagnostic catheter. Left ventricular/Aortic Valve gradient assessed on pullback. Left ventriculogram was performed in PATEL projection. An aortogram of the ascending aorta was performed. A Right Heart Catheterization was performed with a 7.5 Fr. [place]-Bradford catheter and pressure were recorded. Pre- demployment femoral angiogram was performed . Closure device was deployed with a Angioseal without any complications. The patient tolerated the procedure well and there were no complications associated with the procedure. Coronary Angiography The patient's coronary anatomy is right dominant. The left main coronary artery is a large size vessel free of disease. The left main bifurcates to the left anterior descending and circumflex. The left anterior descending artery is a large size vessel with intimal irregularities. There is a 60% stenosis in the mid segment. The first diagonal branch is a medium size vessel free of disease. The second diagonal branch is a small size vessel free of disease. The third diagonal branch is a small size vessel free of disease. The circumflex artery is a medium size vessel free of disease. The first obtuse marginal branch is a small size vessel free of disease. The second obtuse marginal branch is a small size vessel free of disease. The right coronary artery is a large size vessel with intimal irregularities. There is a 80% stenosis in the proximal segment. The right posterior descending artery is a small size vessel free of disease. The right posterolateral branch is a medium size vessel free of disease. Left Ventriculography The left ventricle is normal in size with normal contractility. The left ventricular ejection fraction is estimated to be 55%. The left ventricular end diastolic pressure is 32 mmHg. Right Heart Cath Findings The Right Atrial Pressure is 16 mmHg. The Right Ventricular Pressure is 56/8 mmHg. The Pulmonary Artery Pressure is 56/30 mmHg. The Pulmonary Catheter Wedge Pressure is 32 mmHg. there was a very large v wave Aorta The ascending aorta was normal in size and mild AI Valves The peak gradient across the aortic valve is 40 mmHg. There is Grade 2 aortic insufficiency present. There is Grade 2 mitral insufficiency present. Conclusion This pt has Aortic stenosis with AI and MR. There is moderate pulmonary HTN Two vessel CAD. Will get surgical consult for possible valvular surgery and CABGS Recommendations Valve Surgery CABG DICTATED and SIGNED BY: BANDAR HUFFMAN MD DATE: 04/25/16 184 CC: MICHAEL MCCORMICK MD; BANDAR HUFFMAN MD ~ BANDAR HUFFMAN MD Apr 25, 2016 21:15
[2016-04-26 02:52] VITALS: BP 183/64
[2016-04-26 06:31] LABS: ALBUMIN 3.1 g/dL (3.4-5.0); CALCIUM 7.9 mg/dL (8.5-10.1); CREATININE 1.8 mg/dL (0.7-1.3); GFR 37.4; PHOSPHORUS 1.7 mg/dL (2.6-4.7); POTASSIUM 3.6 mmol/L (3.5-5.1)
[2016-04-26 07:00] VITALS: BP 200/67
[2016-04-26 07:33] VITALS: BP 185/70
[2016-04-26] MEDS: GLIMEPIRIDE 2 MG TABLET PO SCH (08:00)
[2016-04-26] MEDS: IV NORMAL SALINE 1000ML BAG 1,000 ML IV SCH (08:10)
--- NOTE | 2016-04-26 09:12 | RAD ---
2 view CXR: Clinical indications: Heart murmur. Coronary artery disease. Aortic stenosis. Comparison: March 25, 2012.. Findings: Chronic hyperinflation and interstitial lung disease is evident with COPD. A granuloma is seen within the superior medial aspect of the left upper lobe seen best in the lateral view and is stable. No new lung infiltrate or pleural effusion or pulmonary edema or lung mass or pneumothorax is seen. The heart size, pulmonary vasculature, mediastinum and both frank are unremarkable. The osseous structures appear intact. Impression: No acute radiographic abnormality is seen.
[2016-04-26] MEDS: ASPIRIN 81 MG TAB.CHEW PO SCH (10:03)
[2016-04-26] MEDS: DOXAZOSIN MESYLATE 4 MG TABLET PO SCH (10:03)
[2016-04-26] MEDS: SOTALOL 80 MG TABLET. PO SCH (10:03)
[2016-04-26] MEDS: CLOPIDOGREL BISULFATE 75 MG TABLET PO SCH (10:03)
--- NOTE | 2016-04-26 10:08 | PDOC ---
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 CVS: no Orthopnea, no CP RESP: no SOB, no HARRELL GI: no Nausea, no Vomiting : no Dysuria, no Urgency OBJECTIVE Vital Signs Vital Signs Date Time Temp Pulse Resp B/P Pulse Ox O2 Delivery O2 Flow Rate FiO2 04/26/16 07:33 185/70 04/26/16 07:00 97.9 66 16 95 Room Air 97.9 04/25/16 12:03 2.0 I & 0 Intake and Output 04/26/16 07:00 Intake Total 820 ml Output Total 1250 ml Balance -430 ml Intake Oral 520 ml IV Total 300 ml Output Urine Total 1250 ml # Bowel Movements 1 PHYSICAL EXAM Physical Exam General Appearance: Awake Alert Oriented x 3 In no Distress Eyes: VIsion Unchanged Conjunctiva Normal EN: No EN Drainage Mucous Memb. moist Neck: no JVD no JVP Supple no Thyromegaly CVS: S1 S2 + Murmur No Gallop No Rub no Edema Resp: no Rales no Rhonchi no Acc. Muscle use GI: BS +ve NO Bruit Non Tender Non Distended : no CVA tenderness; no Suprapubic Tenderness ASSESSMENT/PLAN Assessment/Plan CKD III/ IV - Creat better off of ARb and with IVF. Current FLuid and E-lyte status does not necessitate emergent need for Dialysis. Suspect Dm and HTNSive / NS, Creat was 2.17 in may 2015 also and I antiicpate it will return to that level once BP are better and off of IVF Hypomag - Give 2 gms Mag Sulfate CAD/ VHDz - s/p LHC - Stress test today HTN: restart Home BP meds as reviewed. See orders for changes. ? some accel due to Anxiety Low Ciro - reval with IV MAg correction, marginal Alb too Proteinuria - min by Ratio Discussed Plan of Care and prognosis etc. at length with family. Risk of needing HD ~ 10% post AVR and CABG at this time. This may rise in the future. COMMENT/RELEVANT DATA Meds Current Medications Medications (Trade) Dose Ordered Sig/Damian Start Time Stop Time Status Last Admin Dose Admin Acetylcysteine (Mucomyst 20% Oral Solution) 1,200 mg BID 04/24/16 09:00 04/26/16 08:59 DC 04/25/16 20:45 1,200 MG Aspirin (Children'S Aspirin) 81 mg DAILYWBKFT 04/24/16 08:00 04/25/16 09:55 81 MG Clopidogrel Bisulfate (Plavix) 75 mg DAILYWBKFT 04/24/16 08:00 04/25/16 09:55 75 MG Doxazosin Mesylate (Cardura) 4 mg DAILY 04/24/16 09:00 04/24/16 08:11 4 MG Fentanyl Citrate (Fentanyl 2ml Vial) 50 mcg 1X ONCE 04/25/16 12:00 04/25/16 12:01 DC 04/25/16 12:03 50 MCG Glimepiride (Amaryl) 2 mg BIDWMEALS 04/24/16 08:00 04/25/16 19:11 2 MG Heparin Sodium/ Sodium Chloride 1,000 unit 1X ONCE 04/25/16 12:00 04/25/16 12:01 DC 04/25/16 12:02 1,000 UNIT Iodixanol (Visipaque 320) 108 ml 1X ONCE 04/25/16 12:00 04/25/16 12:01 DC 04/25/16 12:02 108 ML Lidocaine HCl 20 ml 1X ONCE 04/25/16 12:00 04/25/16 12:01 DC 04/25/16 12:02 20 ML Magnesium Sulfate/ Dextrose (Magnesium Sulfate PREMIX 2GM) 50 ml @ 25 mls/hr 1X ONCE 04/24/16 07:30 04/24/16 09:29 DC 04/24/16 08:10 25 MLS/HR Midazolam HCl (Versed) 1 mg 1X ONCE 04/25/16 12:00 04/25/16 12:01 DC 04/25/16 12:03 1 MG Potassium Chloride (Klor-Con) 20 meq DAILYWBKFT 04/24/16 08:00 04/25/16 19:11 20 MEQ Sodium Chloride (Iv Sodium Chloride 0.9% 1000ml Bag) 1,000 ml @ 75 mls/hr [id number] 04/23/16 13:30 04/25/16 20:47 75 MLS/HR Sotalol HCl 80 mg 80 mg BID 04/23/16 21:00 04/25/16 20:44 80 MG Lab Laboratory Tests Test 04/26/16 05:20 Sodium Level 142mmol/L (136-145) Potassium Level 3.6mmol/L (3.5-5.1) Chloride Level 107mmol/L (98-107) Carbon Dioxide Level 25mmol/L (21-32) Anion Gap 10 (6-14) Blood Urea Nitrogen 18mg/dL (8-26) Creatinine 1.8mg/dL (0.7-1.3) Estimated GFR (Cockcroft-Gault) 37.4 Glucose Level 110mg/dL (70-99) Calcium Level 7.9mg/dL (8.5-10.1) Phosphorus Level 1.7mg/dL (2.6-4.7) Magnesium Level 2.1mg/dL (1.8-2.4) Albumin 3.1g/dL (3.4-5.0) ABDULAZIZ BARROSO MD Apr 26, 2016 10:08
[2016-04-26 10:45] VITALS: BP 171/52
[2016-04-26] MEDS ORDERED: LOSARTAN POTASSIUM 50 MG TABLET. PO SCH (11:00)
[2016-04-26] MEDS: POTASSIUM CHLORIDE 20 MEQ TABLET.ER. PO SCH (13:25)
[2016-04-26 13:26] VITALS: BP 171/52
[2016-04-26] MEDS ORDERED: LOSA50TA6 PO (14:08)
--- NOTE | 2016-04-26 14:19 | CONS ---
DATE OF CONSULTATION: 04/24/2016 REFERRING PHYSICIAN: Eduardo Quinones MD PRIMARY CARE PHYSICIAN: Alex Medeiros MD CLINICAL HISTORY: The patient is a 70-year-old male with known history of hypertension, diabetes, and coronary artery disease. He has had a prior myocardial infarction and underwent stent placement approximately [address] Quinones. The patient has had a history of a known heart murmur and has been followed with serial echos for this. He was recently presented to Dr. Quinones's office with complaints of dyspnea on exertion. He recently underwent an echocardiogram back in March, approximately 1 month ago, showing evidence of severe aortic stenosis with a maximum pressure gradient of 64 mmHg and aortic valve area 0.75 cm2 and velocities across the aortic valve of 4 m/sec, all consistent with severe aortic stenosis. Mitral valve showed evidence of mild, perhaps moderate mitral insufficiency. Left ventricular function was normal with EF of 65%. He has been admitted at this time now and has undergone evaluation with left heart catheterization for further evaluation. This study shows evidence of important 2-vessel coronary artery disease involving the right coronary artery, as well as the mid LAD. I am asked to see him now to consider further management of his aortic stenosis. At the time of my questioning, the patient denies symptoms of dyspnea on exertion or chest pain. 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 His main complaint seems to be bilateral lower extremity calf pain with walking significant distances. PAST MEDICAL HISTORY: 1. Hypertension. 2. Diabetes mellitus. 3. Peripheral vascular occlusive disease. 4. Paroxysmal atrial tachycardia. 5. Hypertension. 6. History of a heart murmur. PAST SURGICAL HISTORY: He has had a stent in his right coronary artery and also wisdom teeth extraction. MEDICATIONS AT HOME: Include vitamin D, doxazosin, glimepiride, sotalol, Plavix, losartan, lovastatin, Lasix once a day, and also aspirin. ALLERGIES: There are no known drug allergies. REVIEW OF SYSTEMS: A 14-point review of systems was performed, otherwise as noted above is unremarkable. 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 He is and lives with his . He is a former smoker, having quit about 4 years ago. He does not use illicit drugs. PHYSICAL EXAMINATION: GENERAL: Reveals an awake, alert male, appearing his stated age. HEENT: Unremarkable. NECK: Shows no JVD. There are no bruits noted. CARDIAC: Shows regular rhythm and rate. There is a systolic murmur present. LUNGS: Clear and equal bilaterally. ABDOMEN: Soft, nontender. EXTREMITIES: Show no edema. Femoral pulses are palpable on the left. The right side has a dressing from his cath. Pedal pulses are nonpalpable. NEUROLOGIC: No focal abnormalities. SKIN: Shows no significant lesions present. Review of the left heart catheterization shows important disease in the LAD and the right coronary artery. Left ventriculogram shows normal LV systolic function. Echocardiograms have been reviewed. Again, the surface echo was consistent with severe aortic stenosis. Clearly, the aortic valve has restricted motion, restricted opening on 2D echo. Mitral insufficiency appears to be mild per my interpretation. IMPRESSION: A 70-year-old male with multiple medical problems, now presents with evidence of severe aortic stenosis with discordant symptomatology as it appears to be minimal. Importantly also, the gradient across the aortic valve is measuring only 40 mmHg, more consistent with moderate aortic stenosis. It could be either that his aortic stenosis is truly moderate or that he is unable to significantly exercise given his claudication to elicit the symptoms of aortic stenosis. I have discussed the patient's care with Dr. Quinones. I feel the best way to proceed forward is by evaluating the heart under stress conditions and Dr. Quinones has suggested doing a stress MUGA exam. Should the study show evidence of increasing gradient across the valve delineation in left ventricular function with stress, then this would be an indication that the aortic stenosis is truly severe and would require intervention. At this point otherwise, we will plan to get a chest x-ray on him, as well as a carotid duplex. Eduardo, thank you very much for asking me to see this very pleasant gentleman in consultation. JOSE L DELGADO MD DR: MICHAELA/mattie JOB#: [id number] / [id number] ALEX Momin MD, HECTOR MD
--- NOTE | 2016-04-26 16:19 | PDOC3 ---
Discharge Summary* Date of Admission: Apr 23, 2016 Date of Discharge: Apr 26, 2016 Admitting Diagnosis Aortic Stenosis Final Diagnosis Aortic Stenosis, Mitral Insufficiency CONSULTS Cardiothoracic Surgery Procedures Left and Right Heart Catheterization, Cardiac Stress Test Brief Hospital Course Mr. Sommers is a 70 old male with known Aortic stenosis who presented with chest pain, shortness of breath and lightheadedness. Heart Catheterization, echo, and cardiac stress testing verified significant aortic stenosis, as well as revealed significant peripheral vascular disease and moderate mitral insufficiency. Aortic valve replacement, as well as surgery to repair or replace the mitral valve was recommended to the patient. He was seen by surgery and will follow up with them and set up a date after seeing his dentist for poor dentition as well as plastic surgeon, Dr. Julien Perry, to repair a nasal defect. He was stable at the time of discharge and will follow up with his Lab Asst in 2 weeks. His peripheral vascular disease will be addressed at this time. At the time of discharge the patient demonstrated understanding of the plan of care and all questions were answered. Disposition/Orders: D/C to Home CONDITION AT DISCHARGE: Stable Diet: Cardiac Scheduled Aspirin (Aspirin) 1 TAB PO DAILY (Reported) Clopidogrel Bisulfate (Clopidogrel) 1 TAB PO DAILY (Reported) Doxazosin Mesylate (Doxazosin Mesylate) 1 TAB PO DAILY (Reported) Glimepiride (Glimepiride) 1 TAB PO BID (Reported) Losartan Potassium (Losartan Potassium) 50 MG PO DAILY (Reported) Lovastatin (Lovastatin) 1 TAB PO DAILY (Reported) Potassium Chloride (Klor-Con M20) 20 MEQ PO DAILY (Reported) Sotalol Hcl (Sotalol) 1 TAB PO BID (Reported) Discontinued Medications Furosemide (Furosemide) 1 TAB PO DAILY (Reported) Losartan/Hydrochlorothiazide (Losartan-Hctz 100-12.5 Mg Tab) 1 TAB PO DAILY ( Reported) FOLLOW UP APPOINTMENT: -Dr. Oneil in 2 weeks -Surgery after dental and plastic surgery appt Time Spent Total time spent with patient [] minutes for coordination of care, counseling, and education. BANDAR HUFFMAN MD Apr 26, 2016 16:19
== END 2016-04-26 15:08 | disposition home or self-care (01) | DRG 287 ==
LOC: CCL 07:57 → 6 SOUTH 10:08
PROVIDERS: ADMIT Internal Medicine Cardiovascular Disease; ATTEND Internal Medicine Cardiovascular Disease
PROC: 4A023N8 Measurement of Cardiac Sampling and Pressure, Bilateral, Percutaneous Approach (ICD-10-PCS; principal; 2016-04-23)
PROC: B3101ZZ Fluoroscopy of Thoracic Aorta using Low Osmolar Contrast (ICD-10-PCS; 2016-04-25)
PROC: B2111ZZ Fluoroscopy of Multiple Coronary Arteries using Low Osmolar Contrast (ICD-10-PCS; 2016-04-25)
PROC: 02HP32Z Insertion of Monitoring Device into Pulmonary Trunk, Percutaneous Approach (ICD-10-PCS; 2016-04-25)
DX: I08.0 Rheumatic disorders of both mitral and aortic valves (principal); N17.9 Acute kidney failure, unspecified; I27.2 Other secondary pulmonary hypertension; N18.3 Chronic kidney disease, stage 3 (moderate); E11.22 Type 2 diabetes mellitus with diabetic chronic kidney disease; E78.5 Hyperlipidemia, unspecified; E83.42 Hypomagnesemia; F41.9 Anxiety disorder, unspecified; I12.9 Hypertensive chronic kidney disease with stage 1 through stage 4 chronic kidney disease, or unspecified chronic kidney disease; I25.10 Atherosclerotic heart disease of native coronary artery without angina pectoris; I25.2 Old myocardial infarction; I70.0 Atherosclerosis of aorta; M95.0 Acquired deformity of nose; Z80.7 Family history of other malignant neoplasms of lymphoid, hematopoietic and related tissues; Z82.5 Family history of asthma and other chronic lower respiratory diseases; Z87.891 Personal history of nicotine dependence; Z95.5 Presence of coronary angioplasty implant and graft
CPT/HCPCS: 36415; 71020; 76770; 78472; 80053; 80069; 81001; 82570; 83735; 84156; 85018; 85027; 85610; 85730; 93017; 93460; 93880; 96374; A9560; C1769; C1771; C1773; C1892; G0269; J2250; J3010; J7030; J7060

== ENCOUNTER 2017-10-02 09:22 | Inpatient (IN) | payer OTHER ==
[2017-10-02 09:39] LABS: ADD MAN DIFF? NO
[2017-10-02] MEDS: FUROSEMIDE 20 MG/2 ML VIAL. IV (09:43)
[2017-10-02 09:44] LABS: BASO # 0.1 x10^3/uL (0.0-0.2); BASO % 1 % (0-3); EOS # 0.2 x10^3/uL (0.0-0.7); EOS % 2 % (0-3); HEMATOCRIT 41.7 % (39.0-53.0); HEMOGLOBIN 14.3 g/dL (13.0-17.5); LYMPH # 3.2 x10^3/uL (1.0-4.8); LYMPH % 25 % (24-48); MEAN CORPUSCULAR HEMOGLOBIN 31 pg (25-35); MEAN CORPUSCULAR HGB CONC 34 g/dL (31-37); MEAN CORPUSCULAR VOLUME 90 fL (79-100); MONO # 0.6 x10^3/uL (0.0-1.1); MONO % 5 % (0-9); NEUT # 8.7 x10^3uL (1.8-7.7); NEUT % 67 % (31-73); PLATELET COUNT 167 x10^3/uL (140-400); RED BLOOD COUNT 4.63 x10^6/uL (4.30-5.70); RED CELL DISTRIBUTION WIDTH 14.9 % (11.5-14.5)
[2017-10-02 09:52] LABS: ANION GAP 11 (6-14); BLOOD UREA NITROGEN 27 mg/dL (8-26); BUN/CREATININE RATIO 12 (6-20); CALCIUM 8.6 mg/dL (8.5-10.1); CARBON DIOXIDE 28 mmol/L (21-32); CHLORIDE 102 mmol/L (98-107); CREATININE 2.3 mg/dL (0.7-1.3); GLUCOSE 313 mg/dL (70-99); POTASSIUM 4.2 mmol/L (3.5-5.1); SODIUM 141 mmol/L (136-145)
[2017-10-02 09:57] LABS: TROPONIN BY ISTAT 0.01 ng/ml (<0.08)
[2017-10-02 09:59] LABS: ALBUMIN 3.6 g/dL (3.4-5.0); ALBUMIN/GLOBULIN RATIO 0.8 (1.0-1.7); ALK PHOS 108 U/L (46-116); ALT (SGPT) 26 U/L (16-63); AST (SGOT) 28 U/L (15-37); TOTAL BILIRUBIN 0.6 mg/dL (0.2-1.0); TOTAL PROTEIN 8.2 g/dL (6.4-8.2)
[2017-10-02 10:01] LABS: TROPONINI < 0.017 ng/mL (0.000-0.055)
[2017-10-02 10:06] LABS: NT-PRO BNP 5492 pg/mL (0-124)
[2017-10-02 10:06] LABS: CKMB INDEX 1.3 % (0-4); CKMB MASS 1.9 ng/mL (0.0-3.6); CREATINE KINASE 149 U/L (39-308)
[2017-10-02] MEDS ORDERED: ONDANSETRON PF 4 MG/2 ML VIAL. IV (11:30)
[2017-10-02 12:41] LABS: PCO2 ABG 47 mmHg (35-46); PH ABG 7.35 (7.35-7.45)
[2017-10-02 12:42] LABS: BASE EXCESS ABG 0 mmol/L (-3-3); FIO2 ABG 100; HCO3 ABG 26 mmol/L (21-28); PO2 ABG 82 mmHg (65-108); SAT O2 ABG 95 % (92-99)
[2017-10-02 14:50] LABS: TROPONINI 0.125 ng/mL (0.000-0.055)
[2017-10-02] MEDS: LOSARTAN POTASSIUM 50 MG TABLET. PO (16:00)
[2017-10-02] MEDS: CLOPIDOGREL BISULFATE 75 MG TABLET PO (16:00)
[2017-10-02] MEDS: LABETALOL 20 MG/4 ML DISP.SYRIN. IVP (16:05)
[2017-10-02] MEDS: POTASSIUM CHLORIDE 20 MEQ TABLET.ER. PO (16:30)
[2017-10-02] MEDS: ASPIRIN CHEWABLE 81 MG TABLET. PO (16:30)
[2017-10-02] MEDS: GLIMEPIRIDE 2 MG TABLET. PO (17:02)
[2017-10-02] MEDS: DOXAZOSIN MESYLATE 4 MG TABLET. PO (17:02)
[2017-10-02 20:47] LABS: POC GLUCOSE 65 mg/dL (70-99)
[2017-10-02 21:16] LABS: POC GLUCOSE 130 mg/dL (70-99)
[2017-10-03 07:29] LABS: POC GLUCOSE 174 mg/dL (70-99)
[2017-10-03] MEDS: ASPIRIN CHEWABLE 81 MG TABLET. PO ×2 (08:00→18:10)
[2017-10-03] MEDS: GLIMEPIRIDE 2 MG TABLET. PO ×2 (08:58→18:09)
[2017-10-03] MEDS: POTASSIUM CHLORIDE 20 MEQ TABLET.ER. PO (08:59)
[2017-10-03] MEDS: LOSARTAN POTASSIUM 50 MG TABLET. PO ×2 (09:00→18:13)
[2017-10-03] MEDS: DOXAZOSIN MESYLATE 4 MG TABLET. PO ×2 (09:00→18:11)
[2017-10-03] MEDS: SOTALOL 80 MG TABLET. PO ×2 (09:04→21:04)
[2017-10-03] MEDS: CLOPIDOGREL BISULFATE 75 MG TABLET PO (09:10)
[2017-10-03 11:14] LABS: POC GLUCOSE 238 mg/dL (70-99)
[2017-10-03] MEDS ORDERED: oxyCODONE/APAP 5/325 1 TAB TABLET PO (16:30)
[2017-10-03 16:33] LABS: POC GLUCOSE 183 mg/dL (70-99)
[2017-10-03] MEDS: oxyCODONE/APAP 5/325 1 TAB TABLET PO (18:12)
[2017-10-04 04:30] LABS: ANION GAP 10 (6-14); BLOOD UREA NITROGEN 25 mg/dL (8-26); CARBON DIOXIDE 28 mmol/L (21-32); CHLORIDE 102 mmol/L (98-107); GFR 32.9; GLUCOSE 138 mg/dL (70-99); MAGNESIUM 1.9 mg/dL (1.8-2.4); POTASSIUM 3.8 mmol/L (3.5-5.1); SODIUM 140 mmol/L (136-145)
[2017-10-04] MEDS: CLOPIDOGREL BISULFATE 75 MG TABLET PO (07:03)
[2017-10-04] MEDS: SOTALOL 80 MG TABLET. PO (07:03)
[2017-10-04 07:07] LABS: POC GLUCOSE 117 mg/dL (70-99)
[2017-10-04] MEDS: oxyCODONE/APAP 5/325 1 TAB TABLET PO (07:07)
[2017-10-04] MEDS: SODIUM BICARBONATE VIAL 50 MEQ in IV 1/2 NORMAL SALINE 1,000 ML IV (07:31)
[2017-10-04] MEDS ORDERED: IODIXANOL 320 MG/ML 100 ML VIAL. (07:53)
[2017-10-04] MEDS ORDERED: LIDOCAINE 2% 20 ML VIAL. (07:53)
[2017-10-04] MEDS ORDERED: fentaNYL PF VIAL 100 MCG/2 ML VIAL (09:33)
[2017-10-04] MEDS ORDERED: MIDAZOLAM HCL/PF 2 MG/2 ML VIAL. (09:33)
[2017-10-04] MEDS: IODIXANOL 320 MG/ML 100 ML VIAL. IART (10:24)
[2017-10-04] MEDS: fentaNYL PF VIAL 100 MCG/2 ML VIAL IV (10:24)
[2017-10-04] MEDS: LIDOCAINE 2% 20 ML VIAL. IJ (10:24)
[2017-10-04] MEDS: MIDAZOLAM HCL/PF 2 MG/2 ML VIAL. IV (10:25)
[2017-10-04 11:17] LABS: POC GLUCOSE 149 mg/dL (70-99)
[2017-10-04] MEDS: GLIMEPIRIDE 2 MG TABLET. PO ×2 (11:52→16:32)
[2017-10-04] MEDS: POTASSIUM CHLORIDE 20 MEQ TABLET.ER. PO (11:53)
[2017-10-04] MEDS: FUROSEMIDE 40 MG/4 ML VIAL. IVP (11:53)
[2017-10-04] MEDS: ASPIRIN CHEWABLE 81 MG TABLET. PO (16:32)
[2017-10-04] MEDS: LOSARTAN POTASSIUM 50 MG TABLET. PO (16:33)
[2017-10-04] MEDS: DOXAZOSIN MESYLATE 4 MG TABLET. PO (16:33)
[2017-10-04 16:37] LABS: POC GLUCOSE 143 mg/dL (70-99)
[2017-10-04] MEDS ORDERED: SODIUM CHLORIDE 0.65% NASAL SPRAY 45ML BOTTLE. NS (16:45)
== END 2017-10-04 17:46 | disposition short-term general hospital (02) | DRG 286 ==
LOC: ER 09:22 → 2 SOUTH 11:17
PROC: 5A09357 Assistance with Respiratory Ventilation, Less than 24 Consecutive Hours, Continuous Positive Airway Pressure (ICD-10-PCS; principal; 2017-10-02)
PROC: B2111ZZ Fluoroscopy of Multiple Coronary Arteries using Low Osmolar Contrast (ICD-10-PCS; 2017-10-04)
PROC: B2151ZZ Fluoroscopy of Left Heart using Low Osmolar Contrast (ICD-10-PCS; 2017-10-04)
PROC: 4A023N8 Measurement of Cardiac Sampling and Pressure, Bilateral, Percutaneous Approach (ICD-10-PCS; 2017-10-04)
DX: I13.0 Hypertensive heart and chronic kidney disease with heart failure and stage 1 through stage 4 chronic kidney disease, or unspecified chronic kidney disease (principal); J96.00 Acute respiratory failure, unspecified whether with hypoxia or hypercapnia; I50.41 Acute combined systolic (congestive) and diastolic (congestive) heart failure; E11.22 Type 2 diabetes mellitus with diabetic chronic kidney disease; I25.10 Atherosclerotic heart disease of native coronary artery without angina pectoris; I25.2 Old myocardial infarction; I27.20 Pulmonary hypertension, unspecified; I34.0 Nonrheumatic mitral (valve) insufficiency; I35.0 Nonrheumatic aortic (valve) stenosis; K21.9 Gastro-esophageal reflux disease without esophagitis; N18.3 Chronic kidney disease, stage 3 (moderate); N40.0 Benign prostatic hyperplasia without lower urinary tract symptoms; Z86.2 Personal history of diseases of the blood and blood-forming organs and certain disorders involving the immune mechanism; M19.90 Unspecified osteoarthritis, unspecified site
CPT/HCPCS: 36415; 36600; 71045; 72125; 72128; 72131; 80048; 80053; 82553; 82805; 82962; 83735; 83880; 84484; 85025; 85610; 93005; 93306; 93460; 94660; 96374; 99152; 99153; 99285; 99285-25; C1769; C1773; C1892; J1644; J1940; J2001; J2250; J3010; J3490

== ENCOUNTER 2018-06-06 20:53 | Emergency (ER) | payer MEDICARE, OTHER ==
[~2018-06-06] VITALS: Ht 180.3 cm; Wt 75.3 kg
[~2018-06-06 20:53] MED LIST changes: +AMLO10TA8 PO; +ASPI-630 PO; -ASPI81TA2 PO; +ATOR40TA59 PO; +DOXA8TAB59 PO; +ESOM40CA47 PO; +LOSA-73 PO; -LOSA1TAB18 PO; +LOSA1TAB25 PO; +LOVA10TA; +METO-239 PO; +POTA10TA12 PO; -SOTA80TA PO; +SOTA80TA48 PO; +TRIA15CR
[2018-06-06] MEDS ORDERED: IV NORMAL SALINE 1000ML BAG 1,000 ML IV ONE (21:30)
[2018-06-06] MEDS ORDERED: ASPIRIN 325 MG TABLET PO ONE (21:30)
[2018-06-06 21:36] LABS: BASO # 0.1 x10^3/uL (0.0-0.2); BASO % 1 % (0-3); EOS # 0.2 x10^3/uL (0.0-0.7); EOS % 4 % (0-3); HEMATOCRIT 36.2 % (39.0-53.0); HEMOGLOBIN 12.4 g/dL (13.0-17.5); LYMPH # 1.8 x10^3/uL (1.0-4.8); LYMPH % 33 % (24-48); MEAN CORPUSCULAR HEMOGLOBIN 29 pg (25-35); MEAN CORPUSCULAR HGB CONC 34 g/dL (31-37); MEAN CORPUSCULAR VOLUME 84 fL (79-100); MONO # 0.6 x10^3/uL (0.0-1.1); MONO % 11 % (0-9); NEUT # 2.8 x10^3uL (1.8-7.7); NEUT % 51 % (31-73); PLATELET COUNT 165 x10^3/uL (140-400); RED BLOOD COUNT 4.29 x10^6/uL (4.30-5.70); RED CELL DISTRIBUTION WIDTH 15.1 % (11.5-14.5); WHITE BLOOD COUNT 5.5 x10^3/uL (4.0-11.0)
[2018-06-06 21:45] LABS: CALCIUM 8.4 mg/dL (8.5-10.1); GFR 32.9; POTASSIUM 3.6 mmol/L (3.5-5.1)
[2018-06-06 21:46] LABS: PROTHROMBIN TIME PATIENT 13.1 SEC (11.7-14.0)
--- NOTE | 2018-06-06 21:49 | RAD ---
EXAM: Chest, 2 views. HISTORY: Palpitations. COMPARISON: 10/31/2017 FINDINGS: 2 views the chest are obtained. There is no infiltrate, pleural effusion or pneumothorax. The heart is normal in size. There is hyperinflation due to inspiratory effort or emphysema. There is a stent overlying the aortic root. IMPRESSION: No acute pulmonary finding. Electronically signed by: Katerine Valdez MD (06/06/2018 9:46 PM) [id number]
[2018-06-06 21:53] LABS: ALBUMIN 3.2 g/dL (3.4-5.0); ALBUMIN/GLOBULIN RATIO 0.8 (1.0-1.7); MAGNESIUM 1.9 mg/dL (1.8-2.4); TOTAL BILIRUBIN 0.4 mg/dL (0.2-1.0); TOTAL PROTEIN 7.1 g/dL (6.4-8.2)
--- NOTE | 2018-06-06 22:13 | PHYS DOC ---
Past Medical History Past Medical History: A-Fib, CHF, Diabetes-Type II, Hypertension, ME Additional Past Medical Histor: ME X 2 (LAST ME October,) Past Surgical History: Other Additional Past Surgical Histo: Cardiac Stent X 4, ARTERY STENT BETWEEN KIDNEYS , CARDIAC VALVE RELPLACE Smoking: Quit Greater Than 1 Year (cigarettes) Additional Information: PT. STATES HE USES A VAPE PEN Alcohol Use: None Drug Use: None Adult General Chief Complaint Chief Complaint: Palpitations HPI HPI 72 y/o male presents with report of palpitations x 20 min prior to arrival. Reports history of atrial fibrillation and heart valve surgery. Denies trauma. Denies SOA or chest pain. Denies diaphoresis or nausea. Patient reports he currently feels better but wants to have things " checked out." Review of Systems Review of Systems Constitutional: Denies fever or chills [] Eyes: Denies change in visual acuity, redness, or eye pain [] HENT: Denies nasal congestion or sore throat [] Respiratory: Denies cough or shortness of breath [] Cardiovascular: Denies chest pain; reports palpitations GI: Denies abdominal pain, nausea, vomiting, or diarrhea [] : Denies dysuria or hematuria [] Musculoskeletal: Denies back pain or joint pain [] Integument: Denies rash or skin lesions [] Neurologic: Denies headache, focal weakness or sensory changes [] Complete systems were reviewed and found to be within normal limits, except as documented in this note. Current Medications Current Medications Current Medications Medications (Trade) Dose Ordered Sig/[facility] Start Time Stop Time Status Last Admin Dose Admin Aspirin (Angel Luis Aspirin) 325 mg 1X ONCE 06/06/18 21:30 06/06/18 21:31 DC 06/06/18 21:34 325 MG Sodium Chloride 1,000 ml @ 1,000 mls/hr 1X ONCE 06/06/18 21:30 06/06/18 22:29 DC 06/06/18 21:34 1,000 MLS/HR Allergies Allergies Allergies Coded Allergies Type Severity Reaction Last Updated Verified No Known Drug Allergies 04/10/16 No Physical Exam Physical Exam Constitutional: Well developed, well nourished, no acute distress, non-toxic appearance. [] HENT: Normocephalic, atraumatic, oropharynx moist, Eyes: Conjunctiva normal, no discharge. [] Neck: Normal range of motion, no tenderness, supple Cardiovascular: Heart rate regular rhythm, no murmur [] Lungs & Thorax: Bilateral breath sounds clear to auscultation [] Abdomen: Soft, no tenderness Skin: Warm, dry, no erythema, no rash. [] Extremities: No calf tenderness,ROM intact, no edema. [] Neurologic: Alert and oriented X 3, normal motor function, normal sensory function, no focal deficits noted. [] Psychologic: Affect normal, judgement normal, mood normal. [] Current Patient Data Vital Signs Vital Signs Date Time Temp Pulse Resp B/P (MAP) Pulse Ox O2 Delivery O2 Flow Rate FiO2 06/06/18 22:20 71 16 182/78 (112) 100 Room Air 06/06/18 21:00 98.3 98.3 Lab Values Laboratory Tests Test 06/06/18 21:25 White Blood Count 5.5 x10^3/uL (4.0-11.0) Red Blood Count 4.29 x10^6/uL (4.30-5.70) L Hemoglobin 12.4 g/dL (13.0-17.5) L Hematocrit 36.2 % (39.0-53.0) L Mean Corpuscular Volume 84 fL (79-100) Mean Corpuscular Hemoglobin 29 pg (25-35) Mean Corpuscular Hemoglobin Concent 34 g/dL (31-37) Red Cell Distribution Width 15.1 % (11.5-14.5) H Platelet Count 165 x10^3/uL (140-400) Neutrophils (%) (Auto) 51 % (31-73) Lymphocytes (%) (Auto) 33 % (24-48) Monocytes (%) (Auto) 11 % (0-9) H Eosinophils (%) (Auto) 4 % (0-3) H Basophils (%) (Auto) 1 % (0-3) Neutrophils # (Auto) 2.8 x10^3uL (1.8-7.7) Lymphocytes # (Auto) 1.8 x10^3/uL (1.0-4.8) Monocytes # (Auto) 0.6 x10^3/uL (0.0-1.1) Eosinophils # (Auto) 0.2 x10^3/uL (0.0-0.7) Basophils # (Auto) 0.1 x10^3/uL (0.0-0.2) Prothrombin Time 13.1 SEC (11.7-14.0) Prothrombin Time INR 1.0 (0.8-1.1) PTT 31 SEC (24-38) Sodium Level 142 mmol/L (136-145) Potassium Level 3.6 mmol/L (3.5-5.1) Chloride Level 104 mmol/L (98-107) Carbon Dioxide Level 31 mmol/L (21-32) Anion Gap 7 (6-14) Blood Urea Nitrogen 32 mg/dL (8-26) H Creatinine 2.0 mg/dL (0.7-1.3) H Estimated GFR (Cockcroft-Gault) 32.9 BUN/Creatinine Ratio 16 (6-20) Glucose Level 153 mg/dL (70-99) H Calcium Level 8.4 mg/dL (8.5-10.1) L Magnesium Level 1.9 mg/dL (1.8-2.4) Total Bilirubin 0.4 mg/dL (0.2-1.0) Aspartate Amino Transferase (AST) 22 U/L (15-37) Alanine Aminotransferase (ALT) 22 U/L (16-63) Alkaline Phosphatase 93 U/L (46-116) Creatine Kinase 113 U/L (39-308) Creatine Kinase MB (Mass) 1.8 ng/mL (0.0-3.6) Creatine Kinase MB Relative Index 1.6 % (0-4) Troponin I Quantitative 0.019 ng/mL (0.000-0.055) DP-Znw-H-Type Natriuretic Peptide 719 pg/mL (0-124) H Total Protein 7.1 g/dL (6.4-8.2) Albumin 3.2 g/dL (3.4-5.0) L Albumin/Globulin Ratio 0.8 (1.0-1.7) L Lipase 384 U/L (73-393) Thyroid Stimulating Hormone (TSH) 4.512 uIU/mL (0.358-3.74) H Free Thyroxine 0.99 ng/dL (0.76-1.46) Free Triiodothyronine (T3) pg/mL 2.37 pg/mL (2.18-3.98) Laboratory Tests 06/06/18 21:25 Laboratory Tests 06/06/18 21:25 EKG EKG @2105 NSR at 77bpm, NO ST elevation, nonspecific t wave inversion I Radiology/Procedures Radiology/Procedures PROCEDURE: CHEST PA & LATERAL EXAM: Chest, 2 views. HISTORY: Palpitations. COMPARISON: 10/31/2017 FINDINGS: 2 views the chest are obtained. There is no infiltrate, pleural effusion or pneumothorax. The heart is normal in size. There is hyperinflation due to inspiratory effort or emphysema. There is a stent overlying the aortic root. IMPRESSION: No acute pulmonary finding. Electronically signed by: Katerine Valdez MD (06/06/2018 9:46 PM) [facility] Course & Med Decision Making Course & Med Decision Making Pertinent Labs and Imaging studies reviewed. (See chart for details) Elderly patient presents with report of palpitations x 20 min. Denies chest pain. EKG stable. Labs obtained and posted to chart. Initial troponin WNL. CXR stable. Patient stable for discharge home with close outpatient follow-up with PCP. Discussed findings and plan with patient, who acknowledges understanding and agreement. Dragon Disclaimer Dragon Disclaimer This electronic medical record was generated, in whole or in part, using a voice recognition dictation system. Departure Departure Impression: Primary Impression: Palpitations Disposition: 01 HOME, SELF-CARE Condition: STABLE Referrals: MICHAEL MCCORMICK MD (PCP) Patient Instructions: Palpitations, Dysy-vj-Efdt JOSE L MOSHER DO Jun 06, 2018 22:13
[2018-06-06 22:20] VITALS: BP 182/78
[2018-06-06 22:56] LABS: FREE T4 0.99 ng/dL (0.76-1.46); THYROID STIM HORMONE (TSH) 4.512 uIU/mL (0.358-3.74)
--- NOTE | 2018-06-07 10:49 | EKG ---
[facility] [address] [place] [address] Test Date: 2018-06-06 Test Time: 21:05:32 Pat Name: ZULLY ARIAS Department: Room: Gender: M [employer]: : 1945 Requested By: JOSE L MOSHER Order Number: [id number] Reading MD: Abdulkadir Killian MD Measurements Intervals Sandy Rate: 77 P: 16 DC: 162 QRS: 16 QRSD: 88 T: 75 QT: 398 QTc: 452 Interpretive Statements SINUS RHYTHM NON-SPECIFIC ST/T CHANGES Electronically Signed On 06-10-2018 10:15:05 DOCTOR ASSISTANT by Abdulkadir Killian MD
== END 2018-06-06 22:30 | disposition home or self-care (01) ==
LOC: ER 20:53
DX: R00.2 Palpitations (principal); I48.91 Unspecified atrial fibrillation; I11.0 Hypertensive heart disease with heart failure; I50.9 Heart failure, unspecified; I25.2 Old myocardial infarction
CPT/HCPCS: 36415; 71046; 80053; 82553; 83690; 83735; 83880; 84439; 84443; 84481; 84484; 85025; 85610; 85730; 93005; 99284; J7030

== ENCOUNTER → 2020-07-27 | Outpatient (CLI) | payer MEDICARE ==
[~2020-07-27] MED LIST changes: +AMLO-187 PO; -AMLO10TA8 PO; +DAPA5TAB PO; +FINA5TAB4 PO; -GLIM2TAB2 PO; +GLIM2TAB7 PO; +LEVO50TA78 PO; -POTA10TA12 PO; +POTASSIUM CHLO10 ME1 PO; +REGADENOSON 0.4 MG/5 ML DISP.SYRIN. IV ONE
--- NOTE | 2020-07-27 10:17 | RAD ---
MR#: [id number] Date of Study: 07/27/2020 Ordering Physician: MERRITT VILLAGOMEZ, Referring Physician: MERRITT VILLAGOMEZ, Tech: Dagoberto De Jesus MBA, RDMS, RVT, RDCS, RTR APPROVED REPORT Patient Location: OUT-PATIENT Indications PAD Findings Right arm 131, left arm 126 Right ankle and left ankle could not be compressed. Nondiagnostic DAI. Critical Notification Critical Value: No <Conclusion> 1. Nondiagnostic DAI due to incompressible vessels in the lower extremities. Signed by : Merritt Villagomez, Electronically Approved : 07/27/2020 10:17:35
--- NOTE | 2020-07-27 10:21 | RAD ---
MR#: [id number] Date of Study: 07/27/2020 Ordering Physician: MERRITT VILLAGOMEZ, Referring Physician: MERRITT VILLAGOMEZ, Tech: Dagoberto De Jesus MBA, RDMS, RVT, RDCS, RTR APPROVED REPORT Patient Location: OUT-PATIENT Indications PAD VELOCITY AND DOPPLER WAVEFORM ANALYSIS RIGHT cm/secWaveformSeverity LEFT cm/secWaveform Severity dCFA OccludeddCFA 66.0Monophasic Prof Fem Art. 49.0MonophasicProf Fem Art. 50.0Monophasic Fem Art Prox. OccludedFem Art Prox. 31.0Monophasic Fem Art Mid. OccludedFem Art Mid. Occluded Fem Art Dist. OccludedFem Art Dist. Occluded Pop Art(Fossa) 31.0MonophasicPop Art(AK) 83.0Monophasic RETAIL MERCHANDISER Prox. 21.0MonophasicPTA Prox. 22.0Monophasic RETAIL MERCHANDISER Dist. 20.0MonophasicPTA Dist. 29.0Monophasic LUH Prox. 18.0MonophasicATA Prox. 10.0Monophasic DPA 15MonophasicDPA 7Monophasic Findings Grayscale images demonstrate severe bilateral lower extremity arterial vessels. The right common fem oral artery appears to be occluded. The SFA appears to be occluded on the right side. There is lisa nstitution at the level of the popliteal artery with monophasic waveforms and diminished flows. The right peroneal artery is not well visualized. On the left side there is likely inflow disease involving the iliac vessels in the common femoral art kerry demonstrates monophasic waveforms with slightly diminished velocities. The mid and distal SFA ar e again occluded with reconstitution of the level the popliteal artery in a monophasic wave pattern. The peroneal artery is again not well visualized. The velocities are diminished due to more proxima l obstruction. Critical Notification Critical Value: No <Conclusion> 1. Severe bilateral inflow and outflow disease as noted above. Signed by : Merritt Villagomez, Electronically Approved : 07/27/2020 10:21:10
--- NOTE | 2020-07-27 10:24 | RAD ---
MR#: [id number] Date of Study: 07/27/2020 Ordering Physician: MERRITT VILLAGOMEZ, Referring Physician: MERRITT VILLAGOMEZ, Tech: Dagoberto De Jesus MBA, RDMS, RVT, RDCS, RTR APPROVED REPORT Patient Location: OUT-PATIENT Laterality:Bilateral Indications Bruit Doppler Spectral Velocity Analysis Right Left pCCA 62/10 cm/spCCA 79/15 cm/s mCCA 61/13 cm/smCCA 108/21 cm/s dCCA 64/14 cm/sdCCA 125/22 cm/s Bulb 65/14 cm/sBulb 130/24 cm/s ECA 140/ cm/sECA 254/ cm/s pICA 74/20 cm/spICA 116/26 cm/s Isabella 72/20 cm/smICA 101/27 cm/s dICA 69/19 cm/sdICA 92/28 cm/s Vert. 67/ cm/sVert. 94/ cm/s Subcl. 172/ cm/sSubcl. 160/ cm/s ICA/CCA 1.16ICA/CCA 1.47 Findings Grayscale images of the bilateral carotid vessels demonstrates mild to moderate diffuse atheroscleros is on the right side and moderate to severe atherosclerosis at the left side. On right side velocities are overall consistent with 0 to less than 50% stenosis. The vertebral velo cities are antegrade. Normal ICA to CCA ratio is noted. On the left side there is likely moderate 50 to 69% stenosis involving the distal common carotid yulia ry as well as the carotid bifurcation. Probable greater than 70% stenosis involving the external car otid artery. Normal ICA to CCA ratios with antegrade vertebral velocities. Bilateral subclavian velocities are grossly unremarkable. Critical Notification Critical Value: No <Conclusion> 1. No significant bilateral internal carotid arterial disease. Signed by : Merritt Villagomez, Electronically Approved : 07/27/2020 10:23:54
--- NOTE | 2020-07-27 16:35 | RAD ---
MR#: [id number] Date of Study: 07/27/2020 Ordering Physician: MERRITT VILLAGOMEZ, Referring Physician: MERRITT VILLAGOMEZ, Tech: Dagoberto De Jesus MBA, RDMS, RVT, RDCS, RTR APPROVED REPORT Patient Location: OUT-PATIENT Indications Renal Artery Stenosis Renal Artery Doppler Right Renal Artery Left Renal Arter y Proximal 43.0/8.0 cm/secProximal 75.0/15.0 cm/sec Mid 62.0/14.0 cm/secMid 78.0/13.0 cm/sec Distal 93.0/20.0 cm/secDistal 64.0/12.0 cm/sec Renal/Aorta Ratio 0.65Renal/Aorta Ratio 0.54 Prox. Resistive Index 0.82Prox. Resistive Index 0.80 Mid Resistive Index 0.77Mid Resistive Index 0.83 Distal Resistive Index 0.79Distal Resistive Index 0.81 Rt. Segmental A. 40.0/10.0 cm/secLt. Segmental A. 64.0/12.0 cm/sec Renal Measurements RightLeft Kidney Fetyem14.5 cm cmKidney Bemhhf23.6 cm cm Right Additional FindingsLeft Additional Findings Aortic Duplex A/PTransverseLongitudinal Proximal Aorta 2.3cm Mid Aorta 2.0cm Distal Aorta 1.1cm Aortic Doppler VelocityWaveform Proximal Aorta 39.0 cm/sec Mid. Aorta 45.0 cm/sec Distal Aorta 143.0 cm/sec Findings Grayscale images of the abdominal aorta reveals mild to moderate diffuse atherosclerosis. Grossly th e bilateral kidneys on grayscale images are unremarkable. Spectral waveforms and color Doppler invol ving the bilateral renal arteries are suboptimal nature but grossly did not reveal any obvious eviden ce of renal artery stenosis. Normal renal to aortic ratios bilaterally. Normal resistive indices bi laterally. Critical Notification Critical Value: No <Conclusion> 1. Technically limited study but no clear evidence of renal artery stenosis bilaterally Signed by : Merritt Villagomez, Electronically Approved : 07/27/2020 16:34:32
--- NOTE | 2020-07-28 11:33 | CARD ---
MR#: [id number] Date of Study: 07/27/2020 Ordering Physician: MERRITT KILLIAN, Referring Physician: MERRITT KILLIAN, Tech: Alejandra Felipe, [facility] APPROVED REPORT EXAM: Two-dimensional and M-mode echocardiogram with Doppler and color Doppler. Other Information Quality : AverageHR: 81bpm INDICATION Cardiac Disease: CAD Surgery/Intervention Status/Post Aortic Valve Replacement: RISK FACTORS Hypertension Hyperlipidemia Diabetes 2D DIMENSIONS RVDd3.6 (2.9-3.5cm)Left Atrium(2D)3.7 (1.6-4.0cm) IVSd1.4 (0.7-1.1cm)Aortic Root(2D)2.7 (2.0-3.7cm) LVDd4.6 (3.9-5.9cm)LVOT Diameter2.0 (1.8-2.4cm) PWd1.3 (0.7-1.1cm)LVDs3.2 (2.5-4.0cm) FS (%) 30.7 %SV57.8 ml LVEF(%)58.2 (>50%) Aortic Valve AoV Peak Brian.208.9cm/sAoV VTI40.0cm AO Peak GR.17.4mmHgLVOT Peak Brian.107.6cm/s LVOT VTI 22.07cmAO Mean GR.10mmHg [place] (VMAX)1.51xy5JMN (VTI)1.77cm2 Mitral Valve MV E Tuisfvjc86.5cm/sMV E Peak Gr.130mmHg MV DECEL [id number] A Wmmwgmws846.1cm/s MV E Mean Gr.4mmHgMV ECQ40yw E/A Ratio0.6MVA (PHT)3.18cm2 TDI E/Lateral E'16.0E/Medial E'20.7 Pulmonary Valve PV Peak Ftrkmpaw954.1cm/sPV Peak Grad.5mmHg Tricuspid Valve TR P. Cwpqujrs613fh/sRAP [id number] TR Peak Gr.99yrMjUJTZ60vyFr Pulmonary Vein S1 Xwagqraj71.4cm/sD2 Slrdoqra06.8cm/s PVa [id number] LEFT VENTRICLE The left ventricle is normal size. There is mild to moderate concentric left ventricular hypertrophy. The left ventricular systolic function is normal and the ejection fraction is within normal range. T he Ejection Fraction is 50-55%. Septal motion consistent with conduction abnormality. Otherwise, monica sly normal wall motion. Transmitral Doppler flow pattern is Grade I-abnormal relaxation pattern. RIGHT VENTRICLE The right ventricle is normal size. There is normal right ventricular wall thickness. The right ventr icular systolic function is normal. ATRIA The left atrium size is normal. The right atrium size is normal. The interatrial septum is intact wit h no evidence for an atrial septal defect or patent foramen ovale as noted on 2-D or Doppler imaging. AORTIC VALVE Doppler and Color Flow revealed no significant aortic regurgitation. There is no significant aortic v alvular stenosis. Calculated aortic valve area is 1.85 cm2 with maximum pressure gradient of 21 mmHg and mean pressure gradient of 12 mmHg. The prosthetic aortic valve appears normal. There is likely a TAVR in place - probable hernandes ewelina. MITRAL VALVE The mitral valve is normal in structure and function. There is no evidence of mitral valve prolapse. There is no mitral valve stenosis. Doppler and Color-flow revealed trace mitral regurgitation. TRICUSPID VALVE The tricuspid valve is normal in structure and function. Doppler and Color Flow revealed trace tricus pid regurgitation with an estimated PAP of 25 mmHg. There is no tricuspid valve stenosis. PULMONIC VALVE The pulmonic valve is not well visualized. Doppler and Color Flow revealed no pulmonic valvular regur gitation. There is no pulmonic valvular stenosis. GREAT VESSELS The aortic root is normal in size. The IVC is normal in size and collapses >50% with inspiration. PERICARDIAL EFFUSION There is no evidence of significant pericardial effusion. Critical Notification Critical Value: No <Conclusion> The left ventricular systolic function is normal and the ejection fraction is within normal range. Th e Ejection Fraction is 50-55%. Septal motion consistent with conduction abnormality. Otherwise, grossly normal wall motion. The prosthetic aortic valve appears normal. There is likely a TAVR in place - probable hernandes ewelina . There is no significant aortic valvular stenosis. Calculated aortic valve area is 1.85 cm2 with maxim um pressure gradient of 21 mmHg and mean pressure gradient of 12 mmHg. Signed by : Merritt Killian, Electronically Approved : 07/28/2020 11:33:08
--- NOTE | 2020-07-28 11:39 | RAD ---
MR#: [id number] Date of Study: 07/27/2020 Ordering Physician: MERRITT KILLIAN, Referring Physician: NIKUNJ BISHOP Tech: RT Chencho (Louann) (N) APPROVED REPORT Test Type: Exercise Stress Nurse/Tech: Jewell Sutton R.N. Test Indications: coronary artery disease Cardiac History: valve replacement, coronary stents x6, htn, dm Medications: see ehr Medical History: see ehr Resting ECG: SR see printout Resting Heart Rate: 67 bpm Resting Blood Pressure: 144/63mmHg Pretest Chest Pain: No chest pain Nurse/Tech Notes lungs cta, heart tones regular Consent: The procedure was explained to the patient in lay terms. Informed consent was witnessed. Luis Angel eout was entered into [email or web address]. History and Stress Test performed by RT Tarsha Paiz) (N) Stress Symptoms No chest pain or symptoms. POST EXERCISE Reason for Termination: Reached target heart rate Target HR: Yes Max HR: 132 bpm 92% of Maximum Predicted HR: 144 bpm Exercise duration: 4:25 min:sec, 2 Stage Exercise capacity: 7.0METs Max Blood Pressure: 148/56mmHg Blood Pressure response to exercise: Normal blood pressure response during stress. Heart Rate response to exercise: normal Chest Pain: No. Arrhythmia: Yes. pvc ST Change: Yes. ST changes noted throughout, difficult to interpret with movement INTERPRETATION Stress EKG Conclusion: Non-diagnostic EKG due to baseline LBBB Imaging Protocol IMAGE PROTOCOL: Rest Tc-99m/stress Tc-99m 1 day Rest: Stress: Viability: Radiopharm.Tc99m [id number] Sestamibi Dose10.7mCi 31.6mCi Duration 15min. 10min. Img Date 07/27/2020 07/27/2020 Inj-Img [id number]. 60min. Post-Injection Exercise: 1 minute Rest Admin Site:IV - Right AntecubitalAdministrator:RT Chencho (Louann)(N) Stress Admin Site: IV - Right AntecubitalAdministrator: RT Chencho (Louann)(N) STRESS DATA End Diast. Vol.119.0mlAv. Heart Rate72.0bpm End Syst. Vol.46.0mlCO Index BSA0.0L/min Myocardial Gknt866.0gEject. Wwtrxvvl34.0% Stress Rates Pk. Fill Rate2.03EDV/secLVtime Pk. Fill 225.57msec Pk. Empty Rate2.80ESV/secLVtime Pk. Pyvbk456.77msec /3 Pk. Fill1.31EDV/sec Stress Scores Regional WT2.00Summed WT13.00 Regional WM0.00Summed WM2.00 LV Perfusion There is a moderate sized basal to mid inferior and inferolateral fixed defect suggestive of prior in farct without any significant ischemia. Wall Motion Mild inferolateral hypokinesis with normal ejection fraction of 60% LV Perf. Quant 17 Seg. SSS11.00 17 Seg. SRS9.00 17 Seg. SDS3.00 Stress Defect Extent (% LAD)8.80Rest Defect Extent (% LAD)6.30Rev. Defect Extent (% LAD)0.00 Stress Defect Extent (% LCX) 73.80Rest Defect Extent (% LCX)46.30Rev. Defect Extent (% LCX)15.00 Stress Defect Extent (% RCA)10.00Rest Defect Extent (% RCA)15.60Rev. Defect Extent (% RCA)0.00 Stress Defect Extent (% GREGOR)24.10Rest Defect Extent (% GREGOR)18.50Rev. Defect Extent (% GREGOR)2.60 Other Information Quality:Average Risk Assessment: Moderate Risk Conclusion 1. Nondiagnostic EKG due to underlying left bundle branch block 2. Moderate sized fixed basal to mid inferolateral defect consistent with prior infarct without any a ctive ischemia 3. Normal ejection fraction at EF of 60% 4. Moderate risk for future cardiovascular events Signed by : Merritt Killian, Electronically Approved : 07/28/2020 11:38:39
== END ==
LOC: NM 09:55
PROVIDERS: ATTEND Internal Medicine Cardiovascular Disease
DX: I25.10 Atherosclerotic heart disease of native coronary artery without angina pectoris (principal); I70.203 Unspecified atherosclerosis of native arteries of extremities, bilateral legs; I51.7 Cardiomegaly; R09.89 Other specified symptoms and signs involving the circulatory and respiratory systems
CPT/HCPCS: 78452; 93017; 93306; 93880; 93922; 93925; 93975; A9500

== ENCOUNTER → 2021-07-21 | Outpatient (CLI) | payer MEDICARE ==
[~2021-07-21] MED LIST changes: +POTA-121 PO; -POTA20TA4 PO; -REGADENOSON 0.4 MG/5 ML DISP.SYRIN. IV ONE
--- NOTE | 2021-07-21 17:00 | RAD ---
MR#: [id number] Date of Study: 07/21/2021 Ordering Physician: MERRITT VILLAGOMEZ, Referring Physician: MERRITT VILLAGOMEZ, Tech: Carolyn Carreno RT R, CT RDMS AB, T APPROVED REPORT Patient Location: OUT-PATIENT Indications pain when walking Findings Left arm 120, right arm 115 Left leg 72, right leg 82 Right DAI 0.66 Left DAI 0.58 Critical Notification Critical Value: No <Conclusion> 1. Severely diminished bilateral DAI Signed by : Merritt Villagomez, Electronically Approved : 07/21/2021 17:00:22
--- NOTE | 2021-07-21 17:02 | RAD ---
MR#: [id number] Date of Study: 07/21/2021 Ordering Physician: MERRITT VILLAGOMEZ, Referring Physician: MERRITT VILLAGOMEZ, Tech: APPROVED REPORT Indications Claudication: PAD. pain when walking long distances VELOCITY AND DOPPLER WAVEFORM ANALYSIS RIGHT cm/secWaveformSeverity LEFT cm/secWaveform Severity pCFA 56.0pCFA 68.3 Prof Fem Art. 63.3Prof Fem Art. 63.8 Fem Art Prox. OccludedFem Art Prox. 22.9 Fem Art Mid. OccludedFem Art Mid. Occluded Fem Art Dist. OccludedFem Art Dist. Occluded Pop Art(AK) 20.8Pop Art(AK) 84.9 COLLECTOR OF AQUARIUM SPECIMENS Prox. 22.5PTA Prox. 30.6 COLLECTOR OF AQUARIUM SPECIMENS Dist. 22.5PTA Dist. 30.6 Per Art Prox. Per Art Prox. Not visualized Per Art Mid. 11.7Per Art Mid. Not visualized Per Art Dist.Per Art Dist.Not visualized LUH Prox. 21.0ATA Prox. 26.1 DPA 19.3DPA 16.2 Findings Grayscale images of the bilateral lower extremity arterial vessels demonstrate severe diffuse atheros clerosis. On the right side the superficial femoral artery is occluded. There are diminished waveforms in the below-knee vessels likely due to more proximal occlusion. Nonetheless, there is three-vessel runoff with diminished velocities. On the left side the superficial femoral artery is again occluded. Reconstitution of the popliteal a rtery is noted with diminished waveforms and monophasic wave pattern below the knee and two-vessel ru noff. The peroneal artery is not visualized. Critical Notification Critical Value: No <Conclusion> 1. 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 Signed by : Merritt Villagomez, Electronically Approved : 07/21/2021 17:02:20
== END ==
LOC: US 09:26
PROVIDERS: ATTEND Internal Medicine Cardiovascular Disease
DX: I70.203 Unspecified atherosclerosis of native arteries of extremities, bilateral legs (principal)
CPT/HCPCS: 93922; 93925